=== PATIENT | male | born 1930 | race Caucasian/White ===

== ENCOUNTER 2016-12-12 17:45 | Inpatient (IN) | payer MEDICARE ==
[2016-12-12] MEDS ORDERED: NS 0.9% 1000 ML* 1,000 ML IV ONE (19:33)
--- NOTE | 2016-12-12 20:10 | RAD ---
Indication: Ataxia. Question TIA/CVA. Comparison: No relevant prior exams available on the [facility] [facility] [place]. Technique: Noncontrast CT vertex of skull through foramen magnum. Report: Moderate prominence of the cerebral sulci and cerebellar fissures reflecting atrophy. Negative for hydrocephalus. Patent basal cisterns. Negative for renteria matter white matter obscuration, intra or extra-axial hemorrhage, or mass effect. Unremarkable orbital contents. No suspicious calvarial or skull base lesion evident. Clear paranasal sinuses and mastoid air spaces. Unremarkable scalp. IMPRESSION: 1. No acute intracranial process evident. 2. Moderate involutional change.
[2016-12-12 20:36] LABS: Hematocrit 44 % (42-52); Hemoglobin 14.5 g/dl (14.0-18.0); Mean Corpuscular HGB Conc 33 g/dl (31-36); Mean Corpuscular Hemoglobin 28 pg (27-31); Mean Corpuscular Volume 83 fL (80-94); Mean Platelet Volume 9 um3 (7.4-10.4); Red Blood Count 5.22 10^6/ul (4.0-5.4); Red Cell Distribution Width 13 % (10.5-15); White Blood Count 10.7 10^3/ul (3.5-10.8)
--- NOTE | 2016-12-12 20:36 | RAD ---
Indication: Weakness. Confusion. Unstable walking. Comparison: October 10, 2013 Technique: Sitting AP 1958 hours Report: Elevated lung volumes and both diffuse mild prominence of the interstitial markings and patchy rarefaction of the mid to upper lung zone interstitial markings. No focal pulmonary lesion, compelling alveolar consolidation, pleural effusion, pneumothorax. Negative for cardiomegaly accounting for AP technique and leftward rotation. Unremarkable central pulmonary vasculature and mediastinal contours. IMPRESSION: Stigmata of obstructive lung disease. No acute pulmonary or cardiac process evident.
[2016-12-12 20:39] LABS: Urine Bacteria Absent (Absent); Urine Bilirubin Negative (Negative); Urine Glucose Negative (Negative); Urine Nitrite Positive (Negative)
[2016-12-12 20:56] LABS: Troponin I 0.01 ng/mL (<0.04)
[2016-12-12 20:57] LABS: Albumin 3.8 g/dL (3.2-5.2); Calcium 9.1 mg/dL (8.6-10.3); EGFR African American 74.5 (>60); Globulin 3.2 g/dL (2-4); Magnesium 1.8 mg/dL (1.9-2.7); Potassium 3.3 mmol/L (3.5-5.0); Total Bilirubin 1.1 mg/dL (0.2-1.0)
[2016-12-12] MEDS ORDERED: Potassium Chlor TAB* 20 MEQ TAB.ER PO ONE (21:18)
[2016-12-12 21:25] LABS: TSH (Thyroid Stimulating Horm) 2.3 mcIU/mL (0.34-5.60)
[2016-12-12] MEDS ORDERED: Levofloxacin TAB* 500 MG PO ONE (22:36)
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
[2016-12-12] MEDS ORDERED: Levofloxacin TAB* 500 MG ONE (23:00)
[2016-12-13] MEDS ORDERED: Ondansetron INJ* 2 MG/ML VIAL IV PRN (00:34)
[2016-12-13] MEDS ORDERED: Ciprofloxacin 400MG IVPREMIX(* 400 MG/200 ML BAG IVPB ONE (00:36)
[2016-12-13] MEDS: NS 0.9% 1000 ML* 1,000 ML IV SCH ×3 (02:02→16:51)
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
[2016-12-13] MEDS ORDERED: Aspirin Low Dose CHEW TAB* 81 MG PO ONE (04:21)
--- NOTE | 2016-12-13 04:28 | PN ---
Progress Note - Progress Note Date of Service: 12/13/16 Note: Troponin sent for TWI increased to 0.22 ASA 324 chew tabs now transfer to telemetry Will dose lovenox full dose x 1 when accurate weight recorded (current weight is family reported to ED staff) Next troponin at 6AM
[2016-12-13] MEDS ORDERED: Enoxaparin(*) 100 MG/ML SYR SUBCUT ONE (05:13)
[2016-12-13] MEDS ORDERED: Heparin VIAL(*) 5000 UNITS/ML VIAL (FIVE THOUSAND) SUBCUT SCH (06:00)
[2016-12-13] MEDS ORDERED: Latanoprost 0.005%* 2.5 ml BTL BOTH EYES SCH (09:00)
[2016-12-13] MEDS ORDERED: Atenolol TAB* 50 MG PO SCH (09:00)
[2016-12-13] MEDS ORDERED: NS 0.9% 1000 ML* 1,000 ML IV ONE (11:46)
[2016-12-13] MEDS ORDERED: Magnesium Sulfate 2 GM IV* 2 GM/50 ML BAG IVPB ONE (11:49)
[2016-12-13] MEDS: TIMOLOL BOTH EYES SCH ×2 (12:00→20:54)
[2016-12-13] MEDS: BRIMONIDINE BOTH EYES SCH ×2 (12:00→20:54)
[2016-12-13] MEDS: PTO Brinzolamide 1% OPHTH SOL(NF) BTL BOTH EYES SCH ×2 (12:00→20:54)
[2016-12-13] MEDS: OPTH BOTH EYES SCH ×2 (12:00→20:54)
[2016-12-13] MEDS ORDERED: Ciprofloxacin 400MG IVPREMIX(* 400 MG/200 ML BAG IVPB SCH (12:00)
[2016-12-13] MEDS ORDERED: Zosyn per Pharmacy* NOTE FOLLOW UP SCH (12:00)
[2016-12-13 12:43] LABS: Hematocrit 43 % (42-52); Hemoglobin 14.3 g/dl (14.0-18.0); Mean Corpuscular HGB Conc 34 g/dl (31-36); Mean Corpuscular Hemoglobin 28 pg (27-31); Mean Corpuscular Volume 83 fL (80-94); Mean Platelet Volume 9 um3 (7.4-10.4); Red Blood Count 5.15 10^6/ul (4.0-5.4); Red Cell Distribution Width 13 % (10.5-15); White Blood Count 8.2 10^3/ul (3.5-10.8)
[2016-12-13 13:00] LABS: Albumin 3.5 g/dL (3.2-5.2); BUN/Creatinine Ratio 20.2 (8-20); Calcium 8.8 mg/dL (8.6-10.3); EGFR African American 82.5 (>60); EGFR Non-African American 64.1 (>60); Globulin 3.4 g/dL (2-4); Magnesium 1.6 mg/dL (1.9-2.7); Potassium 3.2 mmol/L (3.5-5.0); Total Bilirubin 0.9 mg/dL (0.2-1.0); Total Protein 6.9 g/dL (6.4-8.9)
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
[2016-12-13] MEDS: Famotidine TAB* 20 MG PO SCH (15:57)
[2016-12-13] MEDS: Potassium Chloride LIQUID* 20 MEQ PACKET PO SCH ×2 (16:53→20:44)
[2016-12-13] MEDS: ZOSYN 3.375 GM Q8H per EXTENDED INFUSION IVPB SCH ×2 (18:05)
--- NOTE | 2016-12-13 19:32 | RAD ---
Indication: Fall with laceration to head. Assess for intracranial bleed. Comparison: December 12, 2016 CT. Technique: Noncontrast CT vertex of skull through foramen magnum. Report: Moderate prominence of the cerebral sulci and mild prominence of the cerebellar fissures reflecting atrophy. Negative for renteria matter white matter obscuration, intra or extra-axial hemorrhage, or mass effect unremarkable orbital contents. Negative for calvarial or skull base fracture. Clear visualized paranasal sinuses and mastoid air spaces. Scalp edema/infiltrative hematoma and subcutaneous emphysema at the inferior lateral margin of the LEFT orbit and superficial to the anterior segment of the LEFT zygomatic arch. IMPRESSION: 1. No traumatic brain injury or acute intracranial process evident. 2. Mild to moderate involutional change. 3. Scalp edema/infiltrative hematoma and subcutaneous emphysema at the inferior lateral margin of the LEFT orbit and superficial to the anterior segment of the LEFT zygomatic arch.
--- NOTE | 2016-12-13 19:43 | PN ---
Hospitalist Progress Note Patient seen and examined. Eventful day. Positive Troponin determined to be falsely transcribed (0.02 instead of 0.2). Appreciate cardiology input. ECHO pending. Pt started rigoring and spiked fever. IVF bolus. Seemed confused. Lactic 4.1. IVF bolus (intermittently hypotensive). Cipro stopped. Zosyn started. Blood cultures drawn. Around 622 pt fell when getting from chair to bed. landed on right side of body but with small lac on left cheek. CT head pending. Lyte repletion. Change to inpatient status. Sepsis likely 2/2 UTI vs bacteremia. Nicholas Cai MD
[2016-12-13] MEDS: Latanoprost 0.005%* 2.5 ml BTL BOTH EYES SCH (20:45)
--- NOTE | 2016-12-13 22:17 | RAD ---
Indication: Hypoxia, fever. Dehydration. Comparison: December 12, 2016 Technique: Upright AP 1645 hours Report: Mild prominence of the interstitial markings. Mild subsegmental atelectasis at the lung bases. Negative for pleural effusion or pneumothorax. Upper normal heart size. Unremarkable central pulmonary vasculature and mediastinal contours. IMPRESSION: Mild subsegmental atelectasis. No compelling evidence for pneumonia or pulmonary edema.
[2016-12-14] MEDS: ZOSYN 3.375 GM Q8H per EXTENDED INFUSION IVPB SCH ×4 (00:12→08:11)
[2016-12-14] MEDS ORDERED: Furosemide IV* 10 MG/ML 2 ML VIAL (20 MG) IV STA (03:47)
[2016-12-14 05:56] LABS: BUN/Creatinine Ratio 16.9 (8-20); Blood Urea Nitrogen 33 mg/dL (6-24); Chloride 100 mmol/L (101-111); EGFR African American 42.2 (>60); EGFR Non-African American 32.8 (>60); Glucose 193 mg/dL (70-100); Sodium 126 mmol/L (133-145)
[2016-12-14 06:00] LABS: CO2 Carbon Dioxide 14 mmol/L (22-32)
[2016-12-14 06:01] LABS: Anion Gap 12 mmol/L (2-11)
[2016-12-14] MEDS: Famotidine TAB* 20 MG PO SCH (08:11)
[2016-12-14] MEDS: OPTH BOTH EYES SCH ×2 (08:44→19:47)
[2016-12-14] MEDS: BRIMONIDINE BOTH EYES SCH ×2 (08:44→19:47)
[2016-12-14] MEDS: TIMOLOL BOTH EYES SCH ×2 (08:44→19:47)
[2016-12-14 08:47] LABS: Hematocrit 30 % (42-52); Hemoglobin 10.1 g/dl (14.0-18.0); Mean Corpuscular HGB Conc 34 g/dl (31-36); Mean Corpuscular Hemoglobin 28 pg (27-31); Mean Corpuscular Volume 84 fL (80-94); Mean Platelet Volume 9 um3 (7.4-10.4); Red Blood Count 3.59 10^6/ul (4.0-5.4); Red Cell Distribution Width 14 % (10.5-15); White Blood Count 12.4 10^3/ul (3.5-10.8)
[2016-12-14 08:48] LABS: Comments Flag Yes
[2016-12-14 08:49] LABS: Add Diff/Slide Review? Slide Review Added
[2016-12-14] MEDS: PTO Brinzolamide 1% OPHTH SOL(NF) BTL BOTH EYES SCH ×2 (08:49→19:53)
[2016-12-14 09:00] LABS: BUN/Creatinine Ratio 17.9 (8-20); BUN/Creatinine Ratio 18.1 (8-20); Calcium 6.7 mg/dL (8.6-10.3); Calcium 6.9 mg/dL (8.6-10.3); EGFR African American 49.1 (>60); EGFR African American 50.1 (>60); EGFR Non-African American 38.1 (>60); EGFR Non-African American 38.9 (>60); Potassium 3.1 mmol/L (3.5-5.0); Potassium 3.2 mmol/L (3.5-5.0)
[2016-12-14] MEDS: Potassium Chloride LIQUID* 20 MEQ PACKET PO SCH ×2 (09:59→19:42)
[2016-12-14] MEDS ORDERED: Potassium Chloride LIQUID* 20 MEQ PACKET PO SCH (10:00)
[2016-12-14] MEDS ORDERED: Potassium Chlor TAB* 20 MEQ TAB.ER PO SCH (10:00)
[2016-12-14] MEDS ORDERED: Calcium Gluconate INJ* 1 GM in NS 0.9% 50 ML* 50 ML IVPB ONE (11:16)
[2016-12-14] MEDS ORDERED: Potassium Chloride LIQUID* 20 MEQ PACKET PO ONE (12:00)
[2016-12-14] MEDS: cefTRIAXone VIAL(*) 1,000 MG in NS 0.9% 50 ML* 50 ML IVPB SCH (14:20)
--- NOTE | 2016-12-14 18:32 | PN ---
Subjective Date of Service: 12/14/16 Interval History: Improved Lactic acid to 2.6 from 4.1. Pt reports he feels remarkable better after the zosyn antibiotic was infusing. UCx yielded proteus mirablis. 20lasix iv given for increased respiratory rate to 30s overnight with rales appreciated at bases. IVF stopped. 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 RN Report of RLQ pain but not during two visits by this provider. Antibiotics narrowed. Bcx negative x 1 day. No more rigors. Objective Active Medications: Brimonidine/Timolol (Combigan Ophth (Nf)) 1 drop BOTH EYES BID [facility] PRN Reason: Protocol Last Admin: 12/14/16 08:44 Dose: 1 drop Brinzolamide (Azopt 1% Ophth Lisandra(Nf)) 1 drop BOTH EYES BID [facility] Last Admin: 12/14/16 08:49 Dose: 1 drop Famotidine (Pepcid Tab*) 20 mg PO DAILY [facility] Last Admin: 12/14/16 08:11 Dose: 20 mg Ceftriaxone Sodium 1,000 mg/ (Sodium Chloride) 50 mls @ 200 mls/hr IVPB Q24H [facility] Last Admin: 12/14/16 14:20 Dose: 200 mls/hr Latanoprost (Xalatan 0.005%*) 1 drop BOTH EYES BEDTIME [facility] Last Admin: 12/13/16 20:45 Dose: 1 drop Ondansetron HCl (Zofran Inj*) 4 mg IV Q4H PRN PRN Reason: NAUSEA/VOMITING Potassium Chloride (Klor-Con Liquid*) 40 meq PO 0900,2099 [facility] Last Admin: 12/14/16 09:59 Dose: 40 meq Vital Signs 12/13/16 12/13/16 12/13/16 18:35 19:01 19:26 Temperature 97.2 F 98.9 F Pulse Rate 80 83 83 Respiratory 24 17 Rate Blood Pressure 101/53 105/62 114/58 (mmHg) O2 Sat by Pulse 94 97 96 Oximetry 12/13/16 12/13/16 12/13/16 19:46 20:08 20:15 Temperature 98.0 F Pulse Rate 83 82 Respiratory 19 Rate Blood Pressure 114/61 122/68 (mmHg) O2 Sat by Pulse 97 97 Oximetry 12/13/16 12/13/16 12/13/16 20:48 21:34 22:30 Temperature 98.2 F 97.3 F Pulse Rate 83 82 83 Respiratory 19 Rate Blood Pressure 108/70 119/60 123/61 (mmHg) O2 Sat by Pulse 98 93 95 Oximetry 12/13/16 12/14/16 12/14/16 23:32 03:32 04:35 Temperature 98.4 F 98.4 F Pulse Rate 79 81 Respiratory 28 40 23 Rate Blood Pressure 116/61 127/72 (mmHg) O2 Sat by Pulse 96 98 Oximetry 12/14/16 12/14/16 12/14/16 07:28 07:56 11:05 Temperature 99.3 F 98.5 F Pulse Rate 82 80 Respiratory 28 28 28 Rate Blood Pressure 123/75 116/63 (mmHg) O2 Sat by Pulse 98 100 Oximetry 12/14/16 15:34 Temperature 96.2 F Pulse Rate 78 Respiratory 18 Rate Blood Pressure 129/59 (mmHg) O2 Sat by Pulse 96 Oximetry Oxygen Devices in Use Now: - - occasional NC or facemask use. Ears/Nose/Mouth/Throat: NL Teeth, Lips, Gums, Mucous Membranes Moist Neck: NL Appearance and Movements; NL JVP, Trachea Midline Respiratory: - - rales at L>R base Cardiovascular: NL Sounds; No Murmurs; No JVD, RRR Abdominal: NL Sounds; No Tenderness; No Distention Extremities: No Edema Skin: No Rash or Ulcers Neurological: Alert and Oriented x 3 Nutrition: Taking PO's Result Diagrams: 12/14/16 08:37 12/14/16 08:37 Additional Lab and Data: Laboratory Results - last 24 hr 12/14/16 12/14/16 12/14/16 05:13 08:37 08:37 WBC 12.4 H RBC 3.59 L Hgb 10.1 L Hct 30 L MCV 84 MCH 28 MCHC 34 RDW 14 Plt Count 127 L MPV 9 Neut % (Auto) 81.5 Lymph % (Auto) 5.6 L [place] % (Auto) 12.6 H Eos % (Auto) 0 Baso % (Auto) 0.3 Absolute Neuts (auto) 10.1 H Absolute Lymphs (auto) 0.7 L Absolute Monos (auto) 1.6 H Absolute Eos (auto) 0 Absolute Basos (auto) 0 Absolute Nucleated RBC 0 Nucleated RBC % 0 Sodium 126 L D Potassium TNP Chloride 100 L Carbon Dioxide 14 L* Anion Gap 12 H BUN 33 H Creatinine 1.95 H Est GFR ( Amer) 42.2 Est GFR (Non-Af Amer) 32.8 BUN/Creatinine Ratio 16.9 Glucose 193 H Lactic Acid 2.6 H* Calcium 8.0 L Ionized Calcium Magnesium TNP 12/14/16 12/14/16 12/14/16 08:37 08:37 08:37 WBC RBC Hgb Hct MCV MCH MCHC RDW Plt Count MPV Neut % (Auto) Lymph % (Auto) [place] % (Auto) Eos % (Auto) Baso % (Auto) Absolute Neuts (auto) Absolute Lymphs (auto) Absolute Monos (auto) Absolute Eos (auto) Absolute Basos (auto) Absolute Nucleated RBC Nucleated RBC % Sodium 135 D 134 Potassium 3.1 L 3.2 L Chloride 107 106 Carbon Dioxide 19 L 19 L Anion Gap 9 9 BUN 30 H 31 H Creatinine 1.68 H 1.71 H Est GFR ( Amer) 50.1 49.1 Est GFR (Non-Af Amer) 38.9 38.1 BUN/Creatinine Ratio 17.9 18.1 Glucose 182 H 182 H Lactic Acid Calcium 6.7 L 6.9 L Ionized Calcium Magnesium 1.5 L 12/14/16 09:36 WBC RBC Hgb Hct MCV MCH MCHC RDW Plt Count MPV Neut % (Auto) Lymph % (Auto) [place] % (Auto) Eos % (Auto) Baso % (Auto) Absolute Neuts (auto) Absolute Lymphs (auto) Absolute Monos (auto) Absolute Eos (auto) Absolute Basos (auto) Absolute Nucleated RBC Nucleated RBC % Sodium Potassium Chloride Carbon Dioxide Anion Gap BUN Creatinine Est GFR ( Amer) Est GFR (Non-Af Amer) BUN/Creatinine Ratio Glucose Lactic Acid Calcium Ionized Calcium 4.00 L Magnesium Microbiology and Other Data: Microbiology 12/13/16 12:12 Aerobic Blood Culture - Preliminary Blood Venous No Growth Day 1 Anaerobic Blood Culture - Preliminary No Growth Day 1 12/12/16 19:35 Urine Culture - Final Urine Proteus Mirabilis Diagnostic Imaging: CXR 12/13 mild subsegmental atelectasis , no compelling evidence of pneumonia Assess/Plan/Problems-Billing Assessment: 86 year old male PMH HTN presenting with progressive fatigue. Initially ACS rule out with false negative troponin. Proteus Mirabilis UTI progressive to sepsis (elevated lactic acid, unmeasurable BP, tachypnea, AMS, fever). Improving. Course c/b fall with small check lac, CT head negative. LUIS. - Patient Problems (1) Proteus mirabilis infection Current Visit: Yes Status: Acute Code(s): B96.4 - PROTEUS (MIRABILIS) ( MORGANII) CAUSING DIS CLASSD [id number] SNOMED Code(s): 75425461 Comment: UTI >100K. cipro in ED -> zosyn (when rigoring) -> narrow to ceftriaxone given sensitivities. lactic acidosis improving initial bladder scan was negative for retention. consider again if uop does not picker given LUIS. start flomax(reported history of prostate enlargement). (2) Sepsis Current Visit: Yes Status: Acute Comment: Improved. Met both SIRS and qSOFA criteria(unmeasurably low BP on two occasions, tachypnea). Continue abx for UTI source and f/u Bcx (NGTDx1) (3) Urinary retention Current Visit: Yes Status: Acute Code(s): R33.9 - RETENTION OF URINE, UNSPECIFIED SNOMED Code(s): 207475904 Comment: start flomax, consider bladderscan again if poor po intake or worsening CUSTOMS APPRAISER (4) Fall Current Visit: Yes Status: Acute Comment: fall precautions CTH negative physical therapy eval requested. (5) LUIS (acute kidney injury) Current Visit: Yes Status: Acute Code(s): N17.9 - ACUTE KIDNEY FAILURE, UNSPECIFIED SNOMED Code(s): 21894282 Comment: Improving. consider repeat bladder scan. s/p IVF. Likely ATN 2/2 sepsis vs obstructive. add flomax. Consider Ulytes (6) Hypertension Current Visit: Yes Status: Acute Code(s): I10 - ESSENTIAL (PRIMARY) HYPERTENSION SNOMED Code(s): 74902180 Comment: Home medications included atenolol/chlorithalidone 100mg/25mg BID which has been reduced to 50mg atenolol daily by Cardiology. PT in fact had started to cut his home doses as he felt fatigued and strange sensation in back. Atenolol stooped in setting of rigors/sepsis/unmeasurable BP on 12/13. (7) Fatigue Current Visit: Yes Status: Acute Code(s): R53.83 - OTHER FATIGUE SNOMED Code(s): 06646300 Comment: likely 2/2 UTI. f/u ECHO ordered by Cardiology Status and Disposition: Medicine inpatient. Potential discharge 12/15 vs 12/16 if LUIS continues to improve. Attending: Nicholas Cai
[2016-12-14] MEDS: Latanoprost 0.005%* 2.5 ml BTL BOTH EYES SCH (19:39)
[2016-12-14] MEDS: Tamsulosin CAP* 0.4 MG PO SCH (19:48)
[2016-12-15 05:31] LABS: Hematocrit 29 % (42-52); Hemoglobin 9.7 g/dl (14.0-18.0); Mean Corpuscular HGB Conc 34 g/dl (31-36); Mean Corpuscular Hemoglobin 28 pg (27-31); Mean Corpuscular Volume 82 fL (80-94); Mean Platelet Volume 10 um3 (7.4-10.4); Red Blood Count 3.48 10^6/ul (4.0-5.4); Red Cell Distribution Width 13 % (10.5-15); White Blood Count 12.2 10^3/ul (3.5-10.8)
[2016-12-15 05:44] LABS: BUN/Creatinine Ratio 20.6 (8-20); Calcium 8.3 mg/dL (8.6-10.3); EGFR African American 43.7 (>60); Magnesium 2.6 mg/dL (1.9-2.7)
[2016-12-15] MEDS: Tamsulosin CAP* 0.4 MG PO SCH (09:05)
[2016-12-15] MEDS: Potassium Chloride LIQUID* 20 MEQ PACKET PO SCH ×2 (09:05→20:06)
[2016-12-15] MEDS: TIMOLOL BOTH EYES SCH ×2 (09:05→20:03)
[2016-12-15] MEDS: BRIMONIDINE BOTH EYES SCH ×2 (09:05→20:03)
[2016-12-15] MEDS: PTO Brinzolamide 1% OPHTH SOL(NF) BTL BOTH EYES SCH ×2 (09:05→20:10)
[2016-12-15] MEDS: Famotidine TAB* 20 MG PO SCH (09:05)
[2016-12-15] MEDS: OPTH BOTH EYES SCH ×2 (09:05→20:03)
--- NOTE | 2016-12-15 13:12 | PN ---
Subjective Date of Service: 12/15/16 Interval History: . Patient reports he feels "So much better today". Reports increase in strength today and overall sense of feeling better. No fever or chills. No N/V/D. Reports his appetite is returning. Denies SOB/CP. No flank pain. Denies urinary symptoms but does reports low uop Objective Active Medications: Brimonidine/Timolol (Combigan Ophth (Nf)) 1 drop BOTH EYES BID [facility] PRN Reason: Protocol Last Admin: 12/15/16 09:05 Dose: 1 drop Brinzolamide (Azopt 1% Ophth Lisandra(Nf)) 1 drop BOTH EYES BID [facility] Last Admin: 12/15/16 09:05 Dose: 1 drop Famotidine (Pepcid Tab*) 20 mg PO DAILY [facility] Last Admin: 12/15/16 09:05 Dose: 20 mg Ceftriaxone Sodium 1,000 mg/ (Sodium Chloride) 50 mls @ 200 mls/hr IVPB Q24H [facility] Last Admin: 12/14/16 14:20 Dose: 200 mls/hr Latanoprost (Xalatan 0.005%*) 1 drop BOTH EYES BEDTIME [facility] Last Admin: 12/14/16 19:39 Dose: 1 drop Ondansetron HCl (Zofran Inj*) 4 mg IV Q4H PRN PRN Reason: NAUSEA/VOMITING Potassium Chloride (Klor-Con Liquid*) 40 meq PO 00,2099 [facility] Last Admin: 12/15/16 09:05 Dose: 40 meq Tamsulosin HCl (Flomax Cap*) 0.4 mg PO DAILY [facility] Last Admin: 12/15/16 09:05 Dose: 0.4 mg Vital Signs 12/14/16 12/14/16 12/14/16 15:34 19:45 20:00 Temperature 96.2 F 98.7 F Pulse Rate 78 79 Respiratory 18 24 24 Rate Blood Pressure 129/59 104/44 (mmHg) O2 Sat by Pulse 96 98 Oximetry 12/14/16 12/15/16 12/15/16 23:50 03:34 07:27 Temperature 99.6 F 98.6 F 97.9 F Pulse Rate 79 83 79 Respiratory 20 20 24 Rate Blood Pressure 110/46 122/70 134/80 (mmHg) O2 Sat by Pulse 98 95 99 Oximetry 12/15/16 12/15/16 07:45 11:41 Temperature 97.4 F Pulse Rate 77 Respiratory 18 20 Rate Blood Pressure 110/58 (mmHg) O2 Sat by Pulse 97 Oximetry Oxygen Devices in Use Now: None - occasional NC or facemask use. Appearance: eldelry male laying in bed A+O x3 in NAD. Eyes: No Scleral Icterus, PERRLA Ears/Nose/Mouth/Throat: NL Teeth, Lips, Gums, - - Dry MM Respiratory: Symmetrical Chest Expansion and Respiratory Effort, Clear to Auscultation Cardiovascular: NL Sounds; No Murmurs; No JVD Abdominal: NL Sounds; No Tenderness; No Distention, - - No CVA tenderness Extremities: No Edema Skin: No Rash or Ulcers, No Nodules or Sclerosis Neurological: Alert and Oriented x 3, NL Sensation, NL Muscle Strength and Tone Lines/Tubes/Other Access: Clean, Dry and Intact Peripheral IV Nutrition: Taking PO's Result Diagrams: 12/15/16 05:10 12/15/16 05:10 Additional Lab and Data: Laboratory Results - last 24 hr 12/14/16 12/14/16 12/14/16 05:13 08:37 08:37 WBC 12.4 H RBC 3.59 L Hgb 10.1 L Hct 30 L MCV 84 MCH 28 MCHC 34 RDW 14 Plt Count 127 L MPV 9 Neut % (Auto) 81.5 Lymph % (Auto) 5.6 L [place] % (Auto) 12.6 H Eos % (Auto) 0 Baso % (Auto) 0.3 Absolute Neuts (auto) 10.1 H Absolute Lymphs (auto) 0.7 L Absolute Monos (auto) 1.6 H Absolute Eos (auto) 0 Absolute Basos (auto) 0 Absolute Nucleated RBC 0 Nucleated RBC % 0 Sodium 126 L D Potassium TNP Chloride 100 L Carbon Dioxide 14 L* Anion Gap 12 H BUN 33 H Creatinine 1.95 H Est GFR ( Amer) 42.2 Est GFR (Non-Af Amer) 32.8 BUN/Creatinine Ratio 16.9 Glucose 193 H Lactic Acid 2.6 H* Calcium 8.0 L Ionized Calcium Magnesium TNP 12/14/16 12/14/16 12/14/16 08:37 08:37 08:37 WBC RBC Hgb Hct MCV MCH MCHC RDW Plt Count MPV Neut % (Auto) Lymph % (Auto) [place] % (Auto) Eos % (Auto) Baso % (Auto) Absolute Neuts (auto) Absolute Lymphs (auto) Absolute Monos (auto) Absolute Eos (auto) Absolute Basos (auto) Absolute Nucleated RBC Nucleated RBC % Sodium 135 D 134 Potassium 3.1 L 3.2 L Chloride 107 106 Carbon Dioxide 19 L 19 L Anion Gap 9 9 BUN 30 H 31 H Creatinine 1.68 H 1.71 H Est GFR ( Amer) 50.1 49.1 Est GFR (Non-Af Amer) 38.9 38.1 BUN/Creatinine Ratio 17.9 18.1 Glucose 182 H 182 H Lactic Acid Calcium 6.7 L 6.9 L Ionized Calcium Magnesium 1.5 L 12/14/16 09:36 WBC RBC Hgb Hct MCV MCH MCHC RDW Plt Count MPV Neut % (Auto) Lymph % (Auto) [place] % (Auto) Eos % (Auto) Baso % (Auto) Absolute Neuts (auto) Absolute Lymphs (auto) Absolute Monos (auto) Absolute Eos (auto) Absolute Basos (auto) Absolute Nucleated RBC Nucleated RBC % Sodium Potassium Chloride Carbon Dioxide Anion Gap BUN Creatinine Est GFR ( Amer) Est GFR (Non-Af Amer) BUN/Creatinine Ratio Glucose Lactic Acid Calcium Ionized Calcium 4.00 L Magnesium Microbiology and Other Data: Microbiology 12/13/16 12:12 Aerobic Blood Culture - Preliminary Blood Venous No Growth Day 1 Anaerobic Blood Culture - Preliminary No Growth Day 1 12/12/16 19:35 Urine Culture - Final Urine Proteus Mirabilis Diagnostic Imaging: CXR 12/13 mild subsegmental atelectasis , no compelling evidence of pneumonia Assess/Plan/Problems-Billing Assessment: 86 year old male PMH HTN presenting with progressive fatigue. Initially ACS rule out with false negative troponin. Proteus Mirabilis UTI progressive to sepsis (elevated lactic acid, unmeasurable BP, tachypnea, AMS, fever). Improving. Course c/b fall with small check lac, CT head negative. LUIS. - Patient Problems (1) Sepsis Comment: Improving. Met both SIRS and qSOFA criteria(low BP on two occasions, tachypnea). Continue abx for UTI source and f/u Bcx (NGTDx2) (2) Proteus mirabilis infection Comment: UTI >100K. cipro in ED -> zosyn (when rigoring) -> narrow to ceftriaxone given sensitivities. lactic acidosis improving (3) LUIS (acute kidney injury) Comment: Creatinine up today (had been improving); repeat bladder scan. Likely ATN 2/2 sepsis vs obstructive. Check renal u/s. Send Ulytes pt appears dry - plan for gentle IVF NS @ 75 mls/hr (4) Urinary retention Comment: initial bladder scan was negative for retention. recheck bladder scan; plan for renal ultrasound given LUIS. (5) Fall Comment: fall precautions CTH negative physical therapy following (6) Fatigue Comment: likely 2/2 UTI. f/u ECHO ordered by Cardiology. recommendation by Cards if continued fatigue or symptoms to undergo outpatient stress test (7) Hypertension Comment: Home medications included atenolol/chlorithalidone 100mg/25mg BID which has been reduced to 50mg atenolol daily by Cardiology (chlorithalidone DC' d). PT in fact had started to cut his home doses as he felt fatigued and strange sensation. Atenolol stopped in setting of rigors/sepsis/unmeasurable BP on 12/13 - plan to restart atenolol at 25 mg and continue to monitor Status and Disposition: Medicine inpatient. Discharge to home when stable. PT following.
[2016-12-15] MEDS: cefTRIAXone VIAL(*) 1,000 MG in NS 0.9% 50 ML* 50 ML IVPB SCH (14:43)
[2016-12-15] MEDS ORDERED: NS 0.9% 1000 ML* 1,000 ML IV SCH (15:00)
[2016-12-15] MEDS ORDERED: Atenolol TAB* 25 MG PO ONE (16:00)
[2016-12-15] MEDS: Latanoprost 0.005%* 2.5 ml BTL BOTH EYES SCH (21:08)
[2016-12-16 07:37] LABS: Hematocrit 25 % (42-52); Mean Corpuscular HGB Conc 35 g/dl (31-36); Mean Corpuscular Hemoglobin 29 pg (27-31); Mean Corpuscular Volume 80 fL (80-94); Mean Platelet Volume 9 um3 (7.4-10.4); Red Blood Count 3.16 10^6/ul (4.0-5.4); Red Cell Distribution Width 13 % (10.5-15); White Blood Count 9.5 10^3/ul (3.5-10.8)
[2016-12-16 07:52] LABS: BUN/Creatinine Ratio 22.1 (8-20); Calcium 8.2 mg/dL (8.6-10.3); EGFR African American 57.5 (>60); EGFR Non-African American 44.7 (>60); Magnesium 2.2 mg/dL (1.9-2.7); Potassium 3.9 mmol/L (3.5-5.0)
--- NOTE | 2016-12-16 08:53 | RAD ---
Indication: Urinary retention. Assess for hydronephrosis. Comparison: No relevant prior exams available on the [facility] PACS for comparison. Technique: Renal ultrasound. Report: 11.1 x 7.0 x 8.5 cm RIGHT kidney is remarkable for a heterogeneous echogenicity 11.1 x 6.1 x 5.4 cm mass inseparable from the peripheral cortex extending from the superior pole to the inferior pole with intrinsic vascularity suspicious for a renal cell carcinoma or potentially lymphoma. No conspicuous stones or hydronephrosis. 11.2 x 5.0 x 5.3 cm LEFT kidney demonstrates normal variant lobular surface contour without conspicuous focal lesions, stones, or hydronephrosis. Normal range renal cortical echogenicity bilaterally. IMPRESSION: 1. No evidence for obstructive uropathy. 2. Large RIGHT renal mass inseparable from the peripheral cortex suspicious for either renal cell carcinoma or possibly lymphoma. Consider renal mass protocol CT for further assessment.
[2016-12-16] MEDS: Atenolol TAB* 25 MG PO SCH (10:09)
[2016-12-16] MEDS: Famotidine TAB* 20 MG PO SCH (10:09)
[2016-12-16] MEDS: Tamsulosin CAP* 0.4 MG PO SCH (10:09)
[2016-12-16] MEDS: Potassium Chloride LIQUID* 20 MEQ PACKET PO SCH ×2 (10:10→21:24)
[2016-12-16] MEDS: BRIMONIDINE BOTH EYES SCH ×2 (10:18→21:24)
[2016-12-16] MEDS: PTO Brinzolamide 1% OPHTH SOL(NF) BTL BOTH EYES SCH ×2 (10:18→21:24)
[2016-12-16] MEDS: OPTH BOTH EYES SCH ×2 (10:18→21:24)
[2016-12-16] MEDS: TIMOLOL BOTH EYES SCH ×2 (10:18→21:24)
[2016-12-16] MEDS: cefTRIAXone VIAL(*) 1,000 MG in NS 0.9% 50 ML* 50 ML IVPB SCH (15:49)
--- NOTE | 2016-12-16 16:26 | PN ---
Subjective Date of Service: 12/16/16 Interval History: PATIENT REPORTS HE CONTINUES TO FEEL BETTER THAN ADMISSION BUT STILL FEELS LETHARGIC. DENIES FEVER/CHILLS. NO ABDOMINAL PAIN, N/V/D. REPORTS HIS APPETITE IS INCREASING. REPORTS URINATION IS "MORE NORMAL" REPORTING YELLOW URINE. NO FLANK PAIN, DYSURIA, HEMATURIA. PT WAS FOUND TO HAVE A LARGE RIGHT RENAL MASS CONCERNING FOR CARCINOMA/ LYMPHOMA. DISCUSSED FINDINGS WITH PT & HIS . THE PT DOES WANT FURTHER WORK UP AT THIS TIME, PLAN FOR CT CHEST/ABD/PELVIS. Objective Active Medications: Atenolol (Tenormin Tab*) 25 mg PO DAILY [facility] Last Admin: 12/16/16 10:09 Dose: 25 mg Brimonidine/Timolol (Combigan Ophth (Nf)) 1 drop BOTH EYES BID [facility] PRN Reason: Protocol Last Admin: 12/16/16 10:18 Dose: 1 drop Brinzolamide (Azopt 1% Ophth Lisandra(Nf)) 1 drop BOTH EYES BID [facility] Last Admin: 12/16/16 10:18 Dose: 1 drop Famotidine (Pepcid Tab*) 20 mg PO DAILY [facility] Last Admin: 12/16/16 10:09 Dose: 20 mg Ceftriaxone Sodium 1,000 mg/ (Sodium Chloride) 50 mls @ 200 mls/hr IVPB Q24H [facility] Last Admin: 12/16/16 15:49 Dose: 200 mls/hr Latanoprost (Xalatan 0.005%*) 1 drop BOTH EYES BEDTIME [facility] Last Admin: 12/15/16 21:08 Dose: 1 drop Ondansetron HCl (Zofran Inj*) 4 mg IV Q4H PRN PRN Reason: NAUSEA/VOMITING Potassium Chloride (Klor-Con Liquid*) 40 meq PO 0900,2100 [facility] Last Admin: 12/16/16 10:10 Dose: 40 meq Tamsulosin HCl (Flomax Cap*) 0.4 mg PO DAILY [facility] Last Admin: 12/16/16 10:09 Dose: 0.4 mg Vital Signs 12/15/16 12/15/16 12/15/16 19:18 20:00 23:53 Temperature 98.4 F 97.7 F Pulse Rate 83 82 Respiratory 20 17 20 Rate Blood Pressure 130/65 138/66 (mmHg) O2 Sat by Pulse 97 96 Oximetry 12/16/16 12/16/16 07:28 08:00 Temperature 98.0 F Pulse Rate 85 Respiratory 20 20 Rate Blood Pressure 155/86 (mmHg) O2 Sat by Pulse 94 Oximetry Oxygen Devices in Use Now: None - occasional NC or facemask use. Appearance: elderly male laying in bed in NAD; A+O x3 Eyes: No Scleral Icterus, PERRLA Ears/Nose/Mouth/Throat: NL Teeth, Lips, Gums, Mucous Membranes Moist Neck: NL Appearance and Movements; NL JVP Respiratory: Symmetrical Chest Expansion and Respiratory Effort, Clear to Auscultation Cardiovascular: NL Sounds; No Murmurs; No JVD, RRR, No Edema Abdominal: NL Sounds; No Tenderness; No Distention Lymphatic: No Cervical Adenopathy, No Axillary Adenopathy, No Inguinal Adenopathy Extremities: No Edema, No Clubbing, Cyanosis Skin: No Rash or Ulcers, No Nodules or Sclerosis Neurological: Alert and Oriented x 3, NL Sensation, NL Gait, NL Muscle Strength and Tone Lines/Tubes/Other Access: Clean, Dry and Intact Peripheral IV Nutrition: Taking PO's Result Diagrams: 12/16/16 07:19 12/16/16 07:19 Additional Lab and Data: Laboratory Results - last 24 hr 12/14/16 12/14/16 12/14/16 05:13 08:37 08:37 WBC 12.4 H RBC 3.59 L Hgb 10.1 L Hct 30 L MCV 84 MCH 28 MCHC 34 RDW 14 Plt Count 127 L MPV 9 Neut % (Auto) 81.5 Lymph % (Auto) 5.6 L [place] % (Auto) 12.6 H Eos % (Auto) 0 Baso % (Auto) 0.3 Absolute Neuts (auto) 10.1 H Absolute Lymphs (auto) 0.7 L Absolute Monos (auto) 1.6 H Absolute Eos (auto) 0 Absolute Basos (auto) 0 Absolute Nucleated RBC 0 Nucleated RBC % 0 Sodium 126 L D Potassium TNP Chloride 100 L Carbon Dioxide 14 L* Anion Gap 12 H BUN 33 H Creatinine 1.95 H Est GFR ( Amer) 42.2 Est GFR (Non-Af Amer) 32.8 BUN/Creatinine Ratio 16.9 Glucose 193 H Lactic Acid 2.6 H* Calcium 8.0 L Ionized Calcium Magnesium TNP 12/14/16 12/14/1617 08:37 08:37 08:37 WBC RBC Hgb Hct MCV MCH MCHC RDW Plt Count MPV Neut % (Auto) Lymph % (Auto) [place] % (Auto) Eos % (Auto) Baso % (Auto) Absolute Neuts (auto) Absolute Lymphs (auto) Absolute Monos (auto) Absolute Eos (auto) Absolute Basos (auto) Absolute Nucleated RBC Nucleated RBC % Sodium 135 D 134 Potassium 3.1 L 3.2 L Chloride 107 106 Carbon Dioxide 19 L 19 L Anion Gap 9 9 BUN 30 H 31 H Creatinine 1.68 H 1.71 H Est GFR ( Amer) 50.1 49.1 Est GFR (Non-Af Amer) 38.9 38.1 BUN/Creatinine Ratio 17.9 18.1 Glucose 182 H 182 H Lactic Acid Calcium 6.7 L 6.9 L Ionized Calcium Magnesium 1.5 L 12/14/16 09:36 WBC RBC Hgb Hct MCV MCH MCHC RDW Plt Count MPV Neut % (Auto) Lymph % (Auto) [place] % (Auto) Eos % (Auto) Baso % (Auto) Absolute Neuts (auto) Absolute Lymphs (auto) Absolute Monos (auto) Absolute Eos (auto) Absolute Basos (auto) Absolute Nucleated RBC Nucleated RBC % Sodium Potassium Chloride Carbon Dioxide Anion Gap BUN Creatinine Est GFR ( Amer) Est GFR (Non-Af Amer) BUN/Creatinine Ratio Glucose Lactic Acid Calcium Ionized Calcium 4.00 L Magnesium Microbiology and Other Data: Microbiology 12/13/16 12:12 Aerobic Blood Culture - Preliminary Blood Venous No Growth Day 1 Anaerobic Blood Culture - Preliminary No Growth Day 1 12/12/16 19:35 Urine Culture - Final Urine Proteus Mirabilis Diagnostic Imaging: CXR 12/13 mild subsegmental atelectasis , no compelling evidence of pneumonia Assess/Plan/Problems-Billing Assessment: 86 year old male PMH HTN presenting with progressive fatigue. Initially ACS rule out with false negative troponin. Proteus Mirabilis UTI progressive to sepsis (elevated lactic acid, unmeasurable BP, tachypnea, AMS, fever). Improving. Course c/b fall with small check lac, CT head negative. LUIS. - Patient Problems (1) Sepsis Comment: Resolved. Met both SIRS and qSOFA criteria(low BP on two occasions, tachypnea). Continue abx for UTI source and f/u Bcx (NGTDx3) (2) Proteus mirabilis infection Comment: UTI >100K. cipro in ED -> zosyn (when rigoring) -> narrow to ceftriaxone given sensitivities. lactic acidosis improving (3) Renal mass Comment: new this admission, found on renal ultrasound 12/15. Concern for carcinoma or lymphoma, possible abscess with presentation of sepsis? Plan for CT chest/abd/pelvis today. Will require consult from Urology tomorrow and/or possible Onc consult. Depending on what the CT shows patient may have to be referred out of town. (4) LUIS (acute kidney injury) Comment: Creatinine improving; no retention, repeat bladder scan showing 200 mls urine post void. (5) Fall Comment: fall precautions CTH negative physical therapy following (6) Fatigue Comment: Thought initially likely 2/2 UTI now concern for malignancy. f/u ECHO ordered by Cardiology (Still pending?). recommendation by Cards if continued fatigue or symptoms to undergo outpatient stress test?? Will have to determine course of renal mass. (7) Hypertension Comment: Home medications included atenolol/chlorithalidone 100mg/25mg BID which has been reduced to 50mg atenolol daily by Cardiology (chlorithalidone DC' d). PT in fact had started to cut his home doses as he felt fatigued and strange sensation. Atenolol stopped in setting of rigors/sepsis/unmeasurable BP on 12/13 - restart atenolol at 25 mg today and continue to monitor. See Dr. Yu consult on other recommendations. (8) DVT prophylaxis Comment: Heparin SQ Status and Disposition: Medicine inpatient. Pt would like to be discharge to home when stable but is very weak, may require subacute if he doesn't have the strength to go home. PT following.
[2016-12-16] MEDS ORDERED: Iodixanol* (CONTRAST) 320 MG/ML 100 ML SDV IV ONE (16:58)
--- NOTE | 2016-12-16 17:53 | RAD ---
INDICATION: RIGHT renal mass on renal ultrasound of the same date. COMPARISON: Renal ultrasound of the same date. TECHNIQUE: Multidetector CT images were obtained from the lung apices to the ischial tuberosities with 100 mL Visipaque 320 IV contrast. No oral contrast administered. CHEST REPORT: Moderate RIGHT and small LEFT dependent pleural effusions with proportional atelectasis. Negative for pneumothorax. Negative for thoracic lymphadenopathy, cardiomegaly, pericardial effusion. Normal diameter thoracic aorta. Negative for thoracic aortic dissection. Negative for thoracic fracture. At the T6 level there is a 0.8 cm cephalocaudal by 0.5 cm AP density calcified lesion projecting dorsal from the midportion of the vertebral body versus a primary epidural calcification nonetheless there is resulting moderate focal acquired central canal stenosis at the T6 level. CHEST IMPRESSION: 1. Nonspecific moderate RIGHT and small LEFT dependent pleural effusions with proportional atelectasis. 2. While likely indolent the noted calcification or ossification at the T6 level results in moderate focal acquired central canal stenosis. ABDOMEN PELVIS REPORT: Few small hepatic cyst noted including adjacent to the fundus of the gallbladder and inferior to the middle portal vein centrally without concern. No suspicious focal hepatic lesions or biliary dilatation. No CT abnormality of the gallbladder moderately severe atrophy of the pancreas. Unremarkable spleen. Negative for CT abnormality of the upper GI, small bowel, or appendix visualized extending medially. Redundant colon with severe diverticulosis without findings of diverticulitis. Small volume of mildly hyperdense fluid in the RIGHT paracolic gutter. Unremarkable adrenal lesions. Lesion noted at the periphery of the RIGHT renal cortex on ultrasound appears most consistent with a subcapsular hematoma measuring up to 8.7 cm AP by 3.8 cm transverse by 12.3 cm cephalocaudal. No definitive neoplastic lesion of the RIGHT kidney evident. Delayed RIGHT nephrogram and pyelogram. Negative for hydronephrosis. 1.2 cm simple cyst noted at the midpole of the LEFT kidney. Unremarkable nondilated ureters. Partially distended urinary bladder with multiple small diverticula. Severe prostate enlargement. Symmetric seminal vesicles. Negative for lymphadenopathy. Mild atherosclerotic plaque of normal diameter abdominal aorta and iliac arteries. Physiologic distention of the IVC. Normal opacification of the RIGHT renal vein noted. Mild RIGHT flank subcutaneous edema. Negative for lower rib or lumbar sacral spine or pelvic fracture or traumatic malalignment. No suspicious focal osseous lesions evident. ABDOMEN PELVIS IMPRESSION: 1. Lesion noted at the periphery of the RIGHT renal cortex on ultrasound appears most consistent with a subcapsular hematoma measuring up to 8.7 cm AP by 3.8 cm transverse by 12.3 cm cephalocaudal. No definitive neoplastic lesion of the RIGHT kidney evident. Associated delayed RIGHT nephrogram and pyelogram. Negative for hydronephrosis. 2. Mild RIGHT flank subcutaneous edema. The constellation of findings suggests the renal hemorrhage may have resulted from direct trauma to the RIGHT flank. Correlate with clinical assessment.
[2016-12-16] MEDS: Heparin VIAL(*) 5000 UNITS/ML VIAL (FIVE THOUSAND) SUBCUT SCH (21:24)
[2016-12-16] MEDS: Latanoprost 0.005%* 2.5 ml BTL BOTH EYES SCH (21:25)
[2016-12-17 05:54] LABS: Hematocrit 28 % (42-52); Hemoglobin 9.8 g/dl (14.0-18.0); Mean Corpuscular HGB Conc 35 g/dl (31-36); Mean Corpuscular Hemoglobin 28 pg (27-31); Mean Corpuscular Volume 81 fL (80-94); Mean Platelet Volume 9 um3 (7.4-10.4); Red Blood Count 3.45 10^6/ul (4.0-5.4); Red Cell Distribution Width 13 % (10.5-15); White Blood Count 10.5 10^3/ul (3.5-10.8)
[2016-12-17 05:55] LABS: Add Diff/Slide Review? Slide Review Added; Comments Flag Yes
[2016-12-17 06:08] LABS: BUN/Creatinine Ratio 19.6 (8-20); Calcium 8.5 mg/dL (8.6-10.3); EGFR African American 62.8 (>60); EGFR Non-African American 48.9 (>60); Magnesium 2.1 mg/dL (1.9-2.7); Potassium 4.4 mmol/L (3.5-5.0)
[2016-12-17] MEDS: Heparin VIAL(*) 5000 UNITS/ML VIAL (FIVE THOUSAND) SUBCUT SCH (06:11)
[2016-12-17] MEDS: Atenolol TAB* 25 MG PO SCH (09:38)
[2016-12-17] MEDS: Famotidine TAB* 20 MG PO SCH (09:38)
[2016-12-17] MEDS: Potassium Chloride LIQUID* 20 MEQ PACKET PO SCH ×2 (09:38→21:33)
[2016-12-17] MEDS: Tamsulosin CAP* 0.4 MG PO SCH (09:38)
[2016-12-17] MEDS: TIMOLOL BOTH EYES SCH ×2 (09:39→21:34)
[2016-12-17] MEDS: BRIMONIDINE BOTH EYES SCH ×2 (09:39→21:34)
[2016-12-17] MEDS: OPTH BOTH EYES SCH ×2 (09:39→21:34)
[2016-12-17] MEDS: PTO Brinzolamide 1% OPHTH SOL(NF) BTL BOTH EYES SCH ×2 (10:32→21:57)
[2016-12-17] MEDS: cefTRIAXone VIAL(*) 1,000 MG in NS 0.9% 50 ML* 50 ML IVPB SCH (14:46)
--- NOTE | 2016-12-17 16:24 | ECHO ---
Patient: VARUN BASS [facility] Rec#: [id number] : 1930 Date: 12/17/2016 Age: 86y Height: 182.9 cm / 72.0 in Weight: 94.8 kg / 208.9 lbs Sex: M BSA: 2.2 Room#: [facility] Admit Date#: 12/13/2016 Type: Inpatient Referring: Alexander Gan MD Reading: Naeem Del Valle MD Trophy Assembler: Yovana Perez RN RDCS CC: Cj Umaña MD Transthoracic Echocardiogram Indication: Abnormal EKG, fatigue BP: 159/80 HR: 72 Rhythm: NSR Findings History: HTN, Lyme disease, obesity Technical Comments: The study quality is fair. The study is technically limited due to patient body habitus. Completed at 1615. Left Ventricle: The left ventricular chamber size is decreased. Mild concentric left ventricular hypertrophy is observed. Septal wall hypertrophy is observed. There is increased basal septal hypertrophy noted without evidence of an increased gradient across the left ventricular outflow tract. The septal base measures 1.6 cm. Global left ventricular wall motion and contractility are within normal limits. There is normal left ventricular systolic function. The estimated ejection fraction is 60-65%. There is an E to A reversal in the mitral valve flow pattern suggestive of diastolic dysfunction. Left Atrium: The left atrial chamber size is normal. Right Ventricle: The right ventricular chamber size and systolic function are within normal limits. Right Atrium: The right atrial cavity size is normal. The interatrial septum appears lipomatous. Aortic Valve: The aortic valve is trileaflet. The aortic valve leaflets are mildly thickened. There is no evidence of aortic regurgitation. There is no evidence of aortic stenosis. Mitral Valve: Mild mitral annular calcification present. The mitral valve leaflets are mildly thickened. There is no evidence of mitral regurgitation. There is no evidence of mitral stenosis. Tricuspid Valve: The tricuspid valve leaflets are normal. There is moderate tricuspid regurgitation. There is evidence of moderate pulmonary hypertension. There is no tricuspid stenosis. Pulmonic Valve: The pulmonic valve appears normal. There is trace to mild pulmonic regurgitation. There is no pulmonic stenosis. Pericardium: There is no significant pericardial effusion. A pericardial fat pad is visualized. Aorta: There is no dilatation of the ascending aorta. The aortic arch is not well visualized. There is no dilation of the aortic root. Pulmonary Artery: The main pulmonary artery appears normal. Venous: The inferior vena cava appears normal in size. There is a greater than 50% respiratory change in the inferior vena cava dimension. Summary: There was not any prior study for comparison. Conclusions There is increased basal septal hypertrophy noted without evidence of an increased gradient across the left ventricular outflow tract. The septal base measures 1.6 cm. Global left ventricular wall motion and contractility are within normal limits. There is normal left ventricular systolic function. The estimated ejection fraction is 60-65%. The aortic valve leaflets are mildly thickened. There is no evidence of aortic stenosis. There is no evidence of mitral regurgitation. There is moderate tricuspid regurgitation. There is evidence of moderate pulmonary hypertension. There is no significant pericardial effusion. Measurements Name Value Normal Range RVDdMajor (2D) 2.8 cm (2.2 - 4.4) RAd ISD 4CH 4.4 cm (3.4 - 4.9) RA (A4C)W 3.7 cm (2.9 - 4.6) IVSd (2D) 1.1 cm (0.6 - 1) LVPWd (2D) 0.9 cm (0.6 - 1) LVIDd (2D) 3.4 cm (3.6 - 5.4) LVIDs (2D) 1.5 cm - LV FS (2D) 55 % (25 - 45) Aortic Annulus 2.2 cm (1.4 - 2.6) Ao root diameter (2D) 3 cm (2.1 - 3.5) Ascending Ao 3 cm (2.1 - 3.4) LA dimension (AP) 2D 3.7 cm (2.3 - 3.8) LAd ISD 4CH 4.7 cm (2.9 - 5.3) LA ISD 4CH W 3.3 cm (2.5 - 4.5) Name Value Normal Range LA ESV SP 4CH (A/L) 37 ml - LA ESV SP 2CH (A/L) 23 ml - LA ESV BP (A/L) 31 ml - LA ESV BP (A/L) index 14.2 ml/m2 - LA ESV SP 4CH (MOD) 34 ml - LA ESV SP 2CH (MOD) 22 ml - Name Value Normal Range MV E-wave Vmax 0.85 m/sec - MV deceleration time 231 msec - MV A-wave Vmax 1.2 m/sec - MV E:A ratio 0.7 ratio - LV septal e' Vmax 0.06 m/sec - LV lateral e' Vmax 0.07 m/sec - LV E:e' septal ratio 14.2 ratio - LV E:e' lateral ratio 12.1 ratio - Name Value Normal Range AV Vmax 1.3 m/sec - AV VTI 27 cm - AV peak gradient 7.1 mmHg - AV mean gradient 3.9 mmHg - LVOT Vmax 1.1 m/sec - LVOT VTI 18.8 cm - LVOT peak gradient 5 mmHg - LVOT mean gradient 2.6 mmHg - Name Value Normal Range TR Vmax 3.5 m/sec - TR peak gradient 49 mmHg - RAP 3 mmHg - RVSP 52 mmHg - IVC diameter 1.8 cm - Name Value Normal Range PV Vmax 0.89 m/sec -
--- NOTE | 2016-12-17 16:36 | PN ---
Subjective Date of Service: 12/17/16 Interval History: Patient seen and examined at bedside. Mr. Erickson reports walking in the halls and feeling much stronger. Denies any pain, CP, SOB, n/v. Mostly feels fatigued His is encouraged by his progress. Discussed renal hematoma with pt and spouse. Family History: Unchanged from Admission Social History: Unchanged from Admission Past Medical History: Unchanged from Admission Objective Active Medications: Atenolol (Tenormin Tab*) 25 mg PO DAILY [facility] Last Admin: 12/17/16 09:38 Dose: 25 mg Brimonidine/Timolol (Combigan Ophth (Nf)) 1 drop BOTH EYES BID LEE PRN Reason: Protocol Last Admin: 12/17/16 09:39 Dose: 1 drop Brinzolamide (Azopt 1% Ophth Lisandra(Nf)) 1 drop BOTH EYES BID [facility] Last Admin: 12/17/16 10:32 Dose: 1 drop Famotidine (Pepcid Tab*) 20 mg PO DAILY [facility] Last Admin: 12/17/16 09:38 Dose: 20 mg Ceftriaxone Sodium 1,000 mg/ (Sodium Chloride) 50 mls @ 200 mls/hr IVPB Q24H [facility] Last Admin: 12/17/16 14:46 Dose: 200 mls/hr Latanoprost (Xalatan 0.005%*) 1 drop BOTH EYES BEDTIME [facility] Last Admin: 12/16/16 21:25 Dose: 1 drop Ondansetron HCl (Zofran Inj*) 4 mg IV Q4H PRN PRN Reason: NAUSEA/VOMITING Potassium Chloride (Klor-Con Liquid*) 40 meq PO 00,2100 [facility] Last Admin: 12/17/16 09:38 Dose: 40 meq Tamsulosin HCl (Flomax Cap*) 0.4 mg PO DAILY [facility] Last Admin: 12/17/16 09:38 Dose: 0.4 mg Vital Signs 12/16/16 12/16/16 12/17/16 20:19 21:25 00:20 Temperature 97.6 F 97.6 F Pulse Rate 80 78 Respiratory 20 20 20 Rate Blood Pressure 146/71 146/74 (mmHg) O2 Sat by Pulse 100 93 Oximetry 12/17/16 03:56 Temperature 97.9 F Pulse Rate 79 Respiratory 20 Rate Blood Pressure 159/80 (mmHg) O2 Sat by Pulse 96 Oximetry Oxygen Devices in Use Now: None - occasional NC or facemask use. Appearance: Elderly male, lying in bed, NAD Eyes: No Scleral Icterus Ears/Nose/Mouth/Throat: NL Teeth, Lips, Gums, Mucous Membranes Moist Neck: NL Appearance and Movements; NL JVP Respiratory: Symmetrical Chest Expansion and Respiratory Effort, Clear to Auscultation Cardiovascular: NL Sounds; No Murmurs; No JVD, RRR Abdominal: NL Sounds; No Tenderness; No Distention Extremities: No Edema, No Clubbing, Cyanosis Skin: - - ecchymotic areas to face and BUE Neurological: Alert and Oriented x 3, NL Muscle Strength and Tone Lines/Tubes/Other Access: Clean, Dry and Intact Peripheral IV Nutrition: Taking PO's Result Diagrams: 12/17/16 05:17 12/17/16 05:17 Additional Lab and Data: Laboratory Results - last 24 hr 12/14/16 12/14/16 12/14/16 05:13 08:37 08:37 WBC 12.4 H RBC 3.59 L Hgb 10.1 L Hct 30 L MCV 84 MCH 28 MCHC 34 RDW 14 Plt Count 127 L MPV 9 Neut % (Auto) 81.5 Lymph % (Auto) 5.6 L Nuckolls % (Auto) 12.6 H Eos % (Auto) 0 Baso % (Auto) 0.3 Absolute Neuts (auto) 10.1 H Absolute Lymphs (auto) 0.7 L Absolute Monos (auto) 1.6 H Absolute Eos (auto) 0 Absolute Basos (auto) 0 Absolute Nucleated RBC 0 Nucleated RBC % 0 Sodium 126 L D Potassium TNP Chloride 100 L Carbon Dioxide 14 L* Anion Gap 12 H BUN 33 H Creatinine 1.95 H Est GFR ( Amer) 42.2 Est GFR (Non-Af Amer) 32.8 BUN/Creatinine Ratio 16.9 Glucose 193 H Lactic Acid 2.6 H* Calcium 8.0 L Ionized Calcium Magnesium TNP 12/14/16 12/14/16 12/14/16 08:37 08:37 08:37 WBC RBC Hgb Hct MCV MCH MCHC RDW Plt Count MPV Neut % (Auto) Lymph % (Auto) Nuckolls % (Auto) Eos % (Auto) Baso % (Auto) Absolute Neuts (auto) Absolute Lymphs (auto) Absolute Monos (auto) Absolute Eos (auto) Absolute Basos (auto) Absolute Nucleated RBC Nucleated RBC % Sodium 135 D 134 Potassium 3.1 L 3.2 L Chloride 107 106 Carbon Dioxide 19 L 19 L Anion Gap 9 9 BUN 30 H 31 H Creatinine 1.68 H 1.71 H Est GFR ( Amer) 50.1 49.1 Est GFR (Non-Af Amer) 38.9 38.1 BUN/Creatinine Ratio 17.9 18.1 Glucose 182 H 182 H Lactic Acid Calcium 6.7 L 6.9 L Ionized Calcium Magnesium 1.5 L 12/14/16 09:36 WBC RBC Hgb Hct MCV MCH MCHC RDW Plt Count MPV Neut % (Auto) Lymph % (Auto) Nuckolls % (Auto) Eos % (Auto) Baso % (Auto) Absolute Neuts (auto) Absolute Lymphs (auto) Absolute Monos (auto) Absolute Eos (auto) Absolute Basos (auto) Absolute Nucleated RBC Nucleated RBC % Sodium Potassium Chloride Carbon Dioxide Anion Gap BUN Creatinine Est GFR ( Amer) Est GFR (Non-Af Amer) BUN/Creatinine Ratio Glucose Lactic Acid Calcium Ionized Calcium 4.00 L Magnesium Microbiology and Other Data: Microbiology 12/13/16 12:12 Aerobic Blood Culture - Preliminary Blood Venous No Growth Day 1 Anaerobic Blood Culture - Preliminary No Growth Day 1 12/12/16 19:35 Urine Culture - Final Urine Proteus Mirabilis Diagnostic Imaging: CXR 12/13 mild subsegmental atelectasis , no compelling evidence of pneumonia Assess/Plan/Problems-Billing Assessment: 86 year old male PMH HTN presenting with progressive fatigue. Initially ACS rule out with false negative troponin. Proteus Mirabilis UTI progressive to sepsis (elevated lactic acid, unmeasurable BP, tachypnea, AMS, fever). Improving. Course c/b fall with small check lac, CT head negative. LUIS. - Patient Problems (1) Renal hematoma Code(s): S37.019A - MINOR CONTUSION OF UNSPECIFIED KIDNEY, INITIAL ENCOUNTER Comment: CTA chest/abd/pelvis identifies previous concern for mass as a right subcapsular hematoma with accompanying right flank subcutaneous edema. Likely secondary to fall/trauma to right side - reports a forceful fall from an air matty a few weeks ago. Discontinued heparin. Continue to monitor - no hydronephrosis evident, renal function improving. (2) Sepsis Comment: Resolved. Meeting for sepsis on admission by both SIRS and qSOFA criteria (low BP on two occasions, tachypnea). Continue abx for UTI source (3) Proteus mirabilis infection Code(s): B96.4 - PROTEUS (MIRABILIS) (MORGANII) CAUSING DIS CLASSD ELSWHR Comment: UTI >100K Received cipro in ED -> Zosyn (when rigoring) -> narrow to ceftriaxone given sensitivities. (4) LUIS (acute kidney injury) Code(s): N17.9 - ACUTE KIDNEY FAILURE, UNSPECIFIED Comment: Creatinine improving No retention, repeat bladder scan showing 200 mls urine post void. Continue tamsulosin (5) Fall Comment: Fall precautions CTH negative PT/OT consults for dc planning (6) Fatigue Code(s): R53.83 - OTHER FATIGUE Comment: Likely secondary to UTI Echocardiogram pending to evaluate LV function (7) Hypertension Code(s): I10 - ESSENTIAL (PRIMARY) HYPERTENSION Comment: Mostly normotensive Continue atenolol at reduced dose Home chlorithalidone discontinued (8) DVT prophylaxis Comment: Heparin SQ Status and Disposition: Medicine inpatient. Pt would like to be discharge to home when stable but is very weak, may require subacute if he doesn't have the strength to go home. PT following.
[2016-12-17] MEDS: Latanoprost 0.005%* 2.5 ml BTL BOTH EYES SCH (22:11)
[2016-12-18 05:28] LABS: Hematocrit 28 % (42-52); Hemoglobin 9.6 g/dl (14.0-18.0); Mean Corpuscular HGB Conc 34 g/dl (31-36); Mean Corpuscular Hemoglobin 28 pg (27-31); Mean Corpuscular Volume 82 fL (80-94); Mean Platelet Volume 9 um3 (7.4-10.4); Red Blood Count 3.46 10^6/ul (4.0-5.4); Red Cell Distribution Width 13 % (10.5-15); White Blood Count 13.7 10^3/ul (3.5-10.8)
[2016-12-18 05:31] LABS: Add Diff/Slide Review? Slide Review Added; Comments Flag Yes
[2016-12-18 05:36] LABS: BUN/Creatinine Ratio 18.2 (8-20); Calcium 9.2 mg/dL (8.6-10.3); EGFR African American 60.3 (>60); EGFR Non-African American 46.9 (>60); Magnesium 2.2 mg/dL (1.9-2.7); Potassium 4.3 mmol/L (3.5-5.0)
[2016-12-18] MEDS: BRIMONIDINE BOTH EYES SCH (08:21)
[2016-12-18] MEDS: OPTH BOTH EYES SCH (08:21)
[2016-12-18] MEDS: TIMOLOL BOTH EYES SCH (08:21)
[2016-12-18] MEDS: PTO Brinzolamide 1% OPHTH SOL(NF) BTL BOTH EYES SCH (08:22)
[2016-12-18] MEDS: Tamsulosin CAP* 0.4 MG PO SCH (08:24)
[2016-12-18] MEDS: Atenolol TAB* 25 MG PO SCH (08:24)
[2016-12-18] MEDS: Potassium Chloride LIQUID* 20 MEQ PACKET PO SCH (08:24)
[2016-12-18] MEDS: Famotidine TAB* 20 MG PO SCH (08:24)
--- NOTE | 2016-12-18 10:49 | PN ---
Subjective Date of Service: 12/18/16 Family History: Unchanged from Admission Social History: Unchanged from Admission Past Medical History: Unchanged from Admission Objective Active Medications: Atenolol (Tenormin Tab*) 25 mg PO DAILY [facility] Last Admin: 12/18/16 08:24 Dose: 25 mg Brimonidine/Timolol (Combigan Ophth (Nf)) 1 drop BOTH EYES BID [facility] PRN Reason: Protocol Last Admin: 12/18/16 08:21 Dose: 1 drop Brinzolamide (Azopt 1% Ophth Lisandra(Nf)) 1 drop BOTH EYES BID [facility] Last Admin: 12/18/16 08:22 Dose: 1 drop Famotidine (Pepcid Tab*) 20 mg PO DAILY [facility] Last Admin: 12/18/16 08:24 Dose: 20 mg Ceftriaxone Sodium 1,000 mg/ (Sodium Chloride) 50 mls @ 200 mls/hr IVPB Q24H [facility] Last Admin: 12/17/16 14:46 Dose: 200 mls/hr Latanoprost (Xalatan 0.005%*) 1 drop BOTH EYES BEDTIME [facility] Last Admin: 12/17/16 22:11 Dose: 1 drop Ondansetron HCl (Zofran Inj*) 4 mg IV Q4H PRN PRN Reason: NAUSEA/VOMITING Potassium Chloride (Klor-Con Liquid*) 40 meq PO 0900,2099 [facility] Last Admin: 12/18/16 08:24 Dose: 40 meq Tamsulosin HCl (Flomax Cap*) 0.4 mg PO DAILY [facility] Last Admin: 12/18/16 08:24 Dose: 0.4 mg Vital Signs 12/17/16 12/17/16 12/17/16 15:55 20:00 23:48 Temperature 97.9 F 98.4 F Pulse Rate 70 75 Respiratory 16 20 20 Rate Blood Pressure 135/67 138/65 (mmHg) O2 Sat by Pulse 94 93 Oximetry 12/18/16 12/18/16 07:36 08:05 Temperature 98.3 F Pulse Rate 75 Respiratory 18 20 Rate Blood Pressure 145/78 (mmHg) O2 Sat by Pulse 91 Oximetry Oxygen Devices in Use Now: None - occasional NC or facemask use. Result Diagrams: 12/18/16 04:52 12/18/16 04:52 Additional Lab and Data: Laboratory Results - last 24 hr 12/14/16 12/14/16 12/14/16 05:13 08:37 08:37 WBC 12.4 H RBC 3.59 L Hgb 10.1 L Hct 30 L MCV 84 MCH 28 MCHC 34 RDW 14 Plt Count 127 L MPV 9 Neut % (Auto) 81.5 Lymph % (Auto) 5.6 L Sharp % (Auto) 12.6 H Eos % (Auto) 0 Baso % (Auto) 0.3 Absolute Neuts (auto) 10.1 H Absolute Lymphs (auto) 0.7 L Absolute Monos (auto) 1.6 H Absolute Eos (auto) 0 Absolute Basos (auto) 0 Absolute Nucleated RBC 0 Nucleated RBC % 0 Sodium 126 L D Potassium TNP Chloride 100 L Carbon Dioxide 14 L* Anion Gap 12 H BUN 33 H Creatinine 1.95 H Est GFR ( Amer) 42.2 Est GFR (Non-Af Amer) 32.8 BUN/Creatinine Ratio 16.9 Glucose 193 H Lactic Acid 2.6 H* Calcium 8.0 L Ionized Calcium Magnesium TNP 12/14/16 12/14/16 12/14/16 08:37 08:37 08:37 WBC RBC Hgb Hct MCV MCH MCHC RDW Plt Count MPV Neut % (Auto) Lymph % (Auto) Sharp % (Auto) Eos % (Auto) Baso % (Auto) Absolute Neuts (auto) Absolute Lymphs (auto) Absolute Monos (auto) Absolute Eos (auto) Absolute Basos (auto) Absolute Nucleated RBC Nucleated RBC % Sodium 135 D 134 Potassium 3.1 L 3.2 L Chloride 107 106 Carbon Dioxide 19 L 19 L Anion Gap 9 9 BUN 30 H 31 H Creatinine 1.68 H 1.71 H Est GFR ( Amer) 50.1 49.1 Est GFR (Non-Af Amer) 38.9 38.1 BUN/Creatinine Ratio 17.9 18.1 Glucose 182 H 182 H Lactic Acid Calcium 6.7 L 6.9 L Ionized Calcium Magnesium 1.5 L 12/14/16 09:36 WBC RBC Hgb Hct MCV MCH MCHC RDW Plt Count MPV Neut % (Auto) Lymph % (Auto) Sharp % (Auto) Eos % (Auto) Baso % (Auto) Absolute Neuts (auto) Absolute Lymphs (auto) Absolute Monos (auto) Absolute Eos (auto) Absolute Basos (auto) Absolute Nucleated RBC Nucleated RBC % Sodium Potassium Chloride Carbon Dioxide Anion Gap BUN Creatinine Est GFR ( Amer) Est GFR (Non-Af Amer) BUN/Creatinine Ratio Glucose Lactic Acid Calcium Ionized Calcium 4.00 L Magnesium Microbiology and Other Data: Microbiology 12/13/16 12:12 Aerobic Blood Culture - Preliminary Blood Venous No Growth Day 1 Anaerobic Blood Culture - Preliminary No Growth Day 1 12/12/16 19:35 Urine Culture - Final Urine Proteus Mirabilis Diagnostic Imaging: CXR 12/13 mild subsegmental atelectasis , no compelling evidence of pneumonia Assess/Plan/Problems-Billing Assessment: 86 year old male PMH HTN presenting with progressive fatigue. Initially ACS rule out with false negative troponin. Proteus Mirabilis UTI progressive to sepsis (elevated lactic acid, unmeasurable BP, tachypnea, AMS, fever). Improving. Course c/b fall with small check lac, CT head negative. LUIS. - Patient Problems (1) Renal hematoma Code(s): S37.019A - MINOR CONTUSION OF UNSPECIFIED KIDNEY, INITIAL ENCOUNTER Comment: CTA chest/abd/pelvis identifies previous concern for mass as a right subcapsular hematoma with accompanying right flank subcutaneous edema. Likely secondary to fall/trauma to right side - reports a forceful fall from an air matty a few weeks ago. Discontinued heparin. Continue to monitor - no hydronephrosis evident, renal function improving. (2) Sepsis Comment: Resolved. Meeting for sepsis on admission by both SIRS and qSOFA criteria (low BP on two occasions, tachypnea). Continue abx for UTI source (3) Proteus mirabilis infection Code(s): B96.4 - PROTEUS (MIRABILIS) (MORGANII) CAUSING DIS CLASSD ELSWHR Comment: UTI >100K Received cipro in ED -> Zosyn (when rigoring) -> narrow to ceftriaxone given sensitivities. (4) LUIS (acute kidney injury) Code(s): N17.9 - ACUTE KIDNEY FAILURE, UNSPECIFIED Comment: Creatinine improving No retention, repeat bladder scan showing 200 mls urine post void. Continue tamsulosin (5) Fall Comment: Fall precautions CTH negative PT/OT consults for dc planning (6) Fatigue Code(s): R53.83 - OTHER FATIGUE Comment: Likely secondary to UTI Echocardiogram pending to evaluate LV function (7) Hypertension Code(s): I10 - ESSENTIAL (PRIMARY) HYPERTENSION Comment: Mostly normotensive Continue atenolol at reduced dose Home chlorithalidone discontinued (8) DVT prophylaxis Comment: Heparin SQ Status and Disposition: Medicine inpatient. Pt would like to be discharge to home when stable but is very weak, may require subacute if he doesn't have the strength to go home. PT following.
[2016-12-18] MEDS: cefTRIAXone VIAL(*) 1,000 MG in NS 0.9% 50 ML* 50 ML IVPB SCH (13:58)
[2016-12-18 16:44] VITALS: BP 152/56
--- NOTE | 2016-12-19 06:24 | DS ---
CC: Dr. Martinez * MEDICINE DISCHARGE SUMMARY: DATE OF ADMISSION: 12/13/16 DATE OF DISCHARGE: 12/18/16 PRIMARY CARE PHYSICIAN: Dr. Martinez. PROVIDER: Blu Morejon NP ATTENDING PHYSICIAN: Dr. Rossi Young * (as dictated by Blu Morejon NP) CONSULTING PHYSICIAN: Dr. Alexander Gan. PRIMARY DISCHARGE DIAGNOSES: 1. Renal hematoma. 2. Urinary tract infection. 3. Unsteady gait with fall. 4. T-wave inversions and abnormal troponins. 5. Acute kidney injury in the setting of dehydration. SECONDARY DISCHARGE DIAGNOSES: 1. Hypertension. 2. History of gastrointestinal bleeding. 3. History of Lyme disease. 4. Glaucoma. MEDICATIONS AT DISCHARGE: 1. Combigan eye drops, 1 drop to both eyes b.i.d. 2. Azopt 1 drop to both eyes b.i.d. 3. Latanoprost 1 drop to both eyes daily. 4. Cefuroxime 250 mg b.i.d. x5 additional days. 5. Tamsulosin 0.4 mg daily. 6. Atenolol 25 mg daily. HOSPITAL COURSE OF STAY: For full details, please refer to the H and P provided by Dr. Duggan on admission. In summary, Mr. Erickson is a very active 86- year-old man, who presented to the hospital with concern for increasing fatigue. The patient recently had an injury where he was driving a matty, hit the wall, and fell off the tractor with no loss of consciousness or head strike. This was when he was out of town in [place], when he returned back , the patient had significant fatigue, and in the emergency room, was found to be hypokalemic. The patient was becoming increasingly weaker, had difficulty standing. Diagnostic testing showed concern for UTI. The patient was started on antibiotics and followed for concern for T- wave inversions and unsteady gait. The patient had a peak troponin of 0.21 and Cardiology was consulted. Given Mr. Erickson's fatigue and fall as well as his urinary tract infection and subsequent electrolyte abnormalities, it was suspected that this was likely the cause of the patient's elevated troponins. The patient was repleted for his electrolytes and an echocardiogram was ordered to evaluate for LV dysfunction. His chlorthalidone was discontinued as this may be causing significant hypotension in the outpatient setting. His atenolol was also decreased to 25 mg here in the hospital, which has been sufficient to keep the patient's blood pressure well controlled at this time. The transthoracic echocardiogram showed increased basal septal hypertrophy without evidence of increased gradient across the left ventricular outflow tract. There was normal LV systolic function, the estimated EF was 60% to 65%. The aortic valve leaflets are mildly thickened. There is no evidence of aortic stenosis. There is no evidence of mitral regurgitation. There was moderate tricuspid regurgitation and there was evidence of moderate pulmonary hypertension. There was no significant pericardial effusion. The patient was being treated for UTI, which had a positive urine culture for Proteus mirabilis infection. The patient still had persistent kidney injury. A renal ultrasound was checked, which initially showed concern for a potential mass to the right kidney. This was further investigated on a CT of the chest, abdomen, and pelvis; however, it was determined that the lesion noted at the periphery of the right renal cortex on the ultrasound appears most consistent with a subcapsular hematoma that measures up to 8.7 cm x 3.8 cm transverse by 12.3 cm cephalocaudal. There was no definitive neoplastic lesion of the right kidney evident. Associated delayed right nephrogram and pyelogram. Negative for hydronephrosis. There was some mild right flank subcutaneous edema. The constellation of findings suggested the renal hemorrhage may have resulted from direct trauma to the right flank. Given these findings, it was felt that the patient's fall from the air matty may have contributed to the renal hematoma that was seen on the CT scan. The patient has been treated with antibiotics and has been discharged on antibiotics to complete a full course. He has been working with physical and occupational therapies in regards to his ADLs and ambulation. The patient has been advised not to drive. He has showed significant improvement with his ambulation and ability to perform ADLs, and it was felt he would not need subacute rehab. He has been referred to home nursing services for further nursing evaluation as well as home PT and OT. He has also been ordered a rolling walker and shower chair for home use. The patient has been advised not to drive until cleared by his primary care provider. Prior to discharge, the patient has been in stable condition. Most recent vital signs showed temperature of 98.3, heart rate 75, respiratory rate 18, blood pressure 145/70, and O2 saturation 93% on room air. HEENT: Pupils are equal, round, and reactive. There is an area of old ecchymosis to the left cheek with a healing abrasion. Oral mucosa appears moist. Neck is supple. No lymphadenopathy or JVD noted. Cardiac: S1, S2 heart sounds. Regular rate and rhythm. Lungs are clear to auscultation. Abdomen is soft, nontender, nondistended. The patient has multiple old ecchymotic areas to the lower extremities and upper extremities. He is alert and oriented x3. Affect is appropriate. OUTPATIENT FOLLOWUP NEEDS: The patient should follow up with his PCP. He has been advised not to drive. He has also been advised to monitor for any further bruising or worsening right flank pain or inability to urinate. The patient may benefit from the outpatient stress test when fully recovered. He has also been taken off his diuretics, but may benefit from addition of hydrochlorothiazide or loop diuretic per recommendations of Cardiology. Cardiology also recommended perhaps starting him on lisinopril or amlodipine should the patient's blood pressure elevate and require further medication optimization. Patient advised to weight self daily and keep records for PCP follow-up. Labs to follow up on: The patient has been ordered to have outpatient BMP and CBC to monitor for any further signs of bleeding as well as to follow the patient's mild leukocytosis of 13,000 seen on 12/18/16; however, the patient is clinically improved. DIET: Heart-healthy diet. ACTIVITY: As tolerated. CONDITION: Improved, stable. DISPOSITION: To home. TIME SPENT: Time spent on this discharge was approximately 45 minutes. Again, this is only a brief summary of the patient's extended and complex hospital course of stay. For full details, please refer to the full medical record. If you have any further questions or need further assistance, please feel free to contact me at [phone]. BLU MOREJON NP [id number]/[facility] #: [id number] MIMI
== END 2016-12-18 17:10 | disposition home or self-care (01) | DRG 871 ==
LOC: ED 17:45 → MED 12-13 00:34 → MEDTELE 12-13 05:07 → OBSVTOIN 12-13 12:00
PROVIDERS: ADMIT Internal Medicine; ATTEND Internal Medicine
DX: A41.9 Sepsis, unspecified organism (principal); N17.0 Acute kidney failure with tubular necrosis; I27.2 Other secondary pulmonary hypertension; S37.019A Minor contusion of unspecified kidney, initial encounter; E87.1 Hypo-osmolality and hyponatremia; E83.42 Hypomagnesemia; N39.0 Urinary tract infection, site not specified; E86.0 Dehydration; R26.9 Unspecified abnormalities of gait and mobility; H40.9 Unspecified glaucoma; Z86.19 Personal history of other infectious and parasitic diseases; B96.4 Proteus (mirabilis) (morganii) as the cause of diseases classified elsewhere; E87.6 Hypokalemia; I07.1 Rheumatic tricuspid insufficiency; W19.XXXA Unspecified fall, initial encounter
CPT/HCPCS: 36415; 70450; 71010; 71260; 74177; 76775; 80048; 80053; 81003; 81015; 82330; 82550; 82570; 83605; 83735; 83880; 83935; 84300; 84443; 84484; 85025; 85610; 87040; 87077; 87086; 87186; 93005; A9270-GY; J0610; J0696; J0744; J1644; J1650; J1940; J2543; J3475; Q9967

== ENCOUNTER → 2018-08-11 17:31 | Emergency (ER) | payer MEDICARE ==
--- OUTSIDE RECORDS SUMMARY | 2018-08-11 17:38 | XMS REPORT | Continuity of Care Document ---
:1930 External Reference #:[id number] Author Name Antonia Barcenas O.D. Address [address] [place] [address] Care Team Providers Name Role Phone Cassi Martinez M.D. Primary Care Physician Unavailable Payers Date Identification Numbers Payment Provider Subscriber Policy Number: [id number] Medicare - [facility] Julio Erickson PayID: [id number] [address] [place] [address] Policy Number: [id number] [facility] Julio Erickson PayID: [id number] [address] [place] [address] Advance Directives Description No Information Available Problems Active Problems Provider Date Bilateral hearing loss Onset: Essential hypertension Onset: Lyme disease Onset: Conjunctivitis Antonia Barcenas O.D. Onset: 05/05/2018 Bilateral primary open angle glaucoma Antonia Barcenas O.D. Onset: 2016 Combined form of senile cataract Antonia Barcenas O.D. Onset: 05/30/2015 Nuclear senile cataract Antonia Barcenas O.D. Onset: 12/31/2014 Severe / Advanced / End Stage Glaucoma Antonia Barcenas O.D. Onset: 2014 Primary open angle glaucoma Antonia Barcenas O.D. Onset: 12/31/2014 Family History Date Family Member(s) Observation Comments Father No Current Problems Mother No Current Problems Social History Type Date Description Comments Sex Unknown Marital Status Legal Status: Occupation [employer] Work Status Full-Time Employment ETOH Use Denies alcohol use Tobacco Use Start: Unknown Patient has never smoked Recreational Drug Use Denies Drug Use Smoking Status Reviewed: 07/21/18 Patient has never smoked Allergies, Adverse Reactions, Alerts Active Allergies Reaction Severity Comments Date Benadryl 10/14/2014 Medications Active Medications SIG Qnty Indications Ordering Provider Date Combigan 1 drop both eyes 30ml Antonia Wilburn 12/14/2014 0.2-0.5% twice a day Stockwin, O.D. Solution Azopt instill 1 drop 45ml Antonia Wilburn 12/14/2014 1% Suspension into both eyes Stockwin, O.D. twice a day Latanoprost instill 1 drop 7.5units Deidra Leigh López, 09/10/2014 0.005% into both eyes O.D. Solution once daily Atenolol take 1 tablet by Unknown 25mg Tablets mouth once daily Tamsulosin HCL take 1 capsule Unknown 0.4mg by mouth once Capsules daily History Medications Ofloxacin place 1 drop 10ml H10.89 Antonia Wilburn 05/05/2018 - (Ophthalmic) into both eyes Stockwin, O.D. 05/23/2018 0.3% 4xday while Solution awake Erythromycin apply thin strip 1Tube H10.89 Antonia Wilburn 05/05/2018 - 5mg/GM to all four Stockwin, O.D. 05/28/2018 Ointment eyelid margins x every night for 2 weeks Atenolol-Chlorthalido Unknown - ne 03/05/2017 100-25mg Tablets Finasteride take 1 tablet by Unknown - 5mg Tablets mouth once daily 07/04/2017 Immunizations Description No Information Available Vital Signs Description No Information Available Results Description No Information Available Procedures Date Code Description Status 05/05/2018 58001 Est Patient Intermediate Exam Completed 03/07/2018 72308 Scanning Computerized Ophthalmic Diagnostic Imag Posterior Completed Seg On 03/07/2018 61932 Visual Field Exam Extended Completed 03/07/2018 61709 Est Patient Comprehensive Exam Completed 11/04/2017 02352 Est Patient Intermediate Exam Completed 03/06/2017 43892 Scanning Computerized Ophthalmic Diagnostic Imag Posterior Completed Seg On 03/06/2017 95583 Visual Field Exam Extended Completed 03/06/2017 15126 Est Patient Comprehensive Exam Completed 06/13/2016 64367 Scanning Computerized Ophthalmic Diagnostic Imag Posterior Completed Seg On 06/13/2016 83997 Determination Of Refractive State Completed 06/13/2016 78718 Est Patient Comprehensive Exam Completed 02/13/2016 63232 Visual Field Exam Extended Completed 02/13/2016 19678 Est Patient Intermediate Exam Completed 05/30/2015 06021 Pachymetry Completed 05/30/2015 81076 Est Patient Intermediate Exam Completed 12/31/2014 18642 Scanning Computerized Ophthalmic Diagnostic Imag Posterior Completed Seg On 12/31/2014 29549 Est Patient Comprehensive Exam Completed 05/13/2014 05679 Visual Field Exam Extended Completed 05/13/2014 49830 Est Patient Intermediate Exam Completed 02/08/2014 51905 Scanning Computerized Ophthalmic Diagnostic Imag Posterior Completed Seg On 02/08/2014 69145 Gonioscopy Completed 02/08/2014 12129 Est Patient Intermediate Exam Completed 11/09/2013 21539 Fundus Photography With Interpretation And Report Completed 11/09/2013 70384 Visual Field Exam Extended Completed 11/09/2013 31779 Est Patient Comprehensive Exam Completed 03/23/2013 78115 Trabeculoplasty By Laser Surgery Completed 03/19/2013 18130 Est Patient Intermediate Exam Completed 03/19/2013 43182 Trabeculoplasty By Laser Surgery Completed 02/25/2013 61352 Est Patient Comprehensive Exam Completed 02/25/2013 28113 Visual Field Exam Extended Completed 02/25/2013 38227 Scanning Computerized Ophthalmic Diagnostic Imag Posterior Completed Seg On 12/03/2011 37355 Scanning Computerized Ophthalmic Diagnostic Imag Posterior Completed Seg On 12/03/2011 89261 Visual Field Exam Extended Completed 12/03/2011 29211 Est Patient Comprehensive Exam Completed 05/07/2011 52677 Trabeculoplasty By Laser Surgery Completed 04/23/2011 17422 Trabeculoplasty By Laser Surgery Completed 04/16/2011 83989 Scanning Computerized Ophthalmic Diagnostic Imag Posterior Completed Seg On 04/16/2011 53513 Est Patient Comprehensive Exam Completed 10/04/2010 82530 Visual Field Exam Extended Completed 06/07/2010 81767 Determination Of Refractive State Completed 06/07/2010 78760 Est Patient Comprehensive Exam Completed 10/22/2009 63827 Est Patient Intermediate Exam Completed 09/19/2009 40597 Scanning Laser W/Interp And Report Completed 09/19/2009 98849 Determination Of Refractive State Completed 09/12/2009 18118 Visual Field Exam Extended Completed 11/01/2008 44327 Scanning Laser W/Interp And Report Completed 11/01/2008 30865 Est Patient Comprehensive Exam Completed 10/06/2008 60469 Visual Field Exam Extended Completed 10/06/2008 96115 Est Patient Intermediate Exam Completed 10/06/2008 97029 Pachymetry Completed 02/25/2008 33094 Determination Of Refractive State Completed 11/26/2007 29239 Visual Field Exam Extended Completed 09/12/2006 49801 Visual Field Exam Extended Completed 08/28/2006 41353 Est Patient Comprehensive Exam Completed 2005 18468 Rescheduled Appointment Completed 09/27/2004 45588 Patient No Show For Appt Completed 09/08/2003 42045 Patient No Show For Appt Completed 08/16/2003 20277 Visual Field Exam Intermediate Completed 08/09/2003 96747 Patient No Show For Appt Completed Encounters Type Date Location Provider Dx Diagnosis Office Visit 05/14/2018 Antonia Lobato H10.89 Other conjunctivitis 11:20a , debbie Barcenas O.D. H40.1133 Primary open-angle glaucoma, bilateral, severe stage Office Visit 07/05/2017 10:10a Nemesio Wilburn H40.1133 Primary MD Thomas, debbie Barcenas O.D. open-angle glaucoma, bilateral, severe stage H25.813 Combined forms of age-related cataract, bilateral Office Visit 08/03/2013 8:30a Nemesio Wilburn 365.11 Primary Jamari Guzman MD, debbie Barcenas O.D. Angle Glaucoma 365.73 Severe / Advanced / End Stage Glaucoma Office Visit 08/11/2012 9:10a Nemesio Wilburn 365.11 Primary Jamari Guzman MD, debbie Barcenas O.D. Angle Glaucoma 365.73 Severe / Advanced / End Stage Glaucoma Office Visit 04/07/2012 9:10a Nemesio Wilburn 365.73 Severe / MD Thomas, debbie Barcenas O.D. Advanced / End Stage Glaucoma Office Visit 09/10/2011 10:30a Nemesio Wilburn 365.11 Emanuel Guzman MD, debbie Barcenas O.D. Angle Glaucoma 365.73 Severe / Advanced / End Stage Glaucoma Office Visit 06/06/2011 9:00a Nemesio Mccloud, 365.11 Primary Open MD Thomas, pc Angle Glaucoma 365.73 Severe / Advanced / End Stage Glaucoma Office Visit 04/23/2011 4:00p Nemesio Mccloud, 365.11 Primary Open MD Thomas, pc Angle Glaucoma 365.11 Primary Open Angle Glaucoma 365.73 Severe / Advanced / End Stage Glaucoma 365.73 Severe / Advanced / End Stage Glaucoma Office Visit 01/23/2010 8:40a Nemesio Wilburn 365.11 Primary Open MD Thomas, pc Stockwin, O.D. Angle Glaucoma Office Visit 09/19/2009 8:40a Nemesio Wilburn 365.11 Primary Open MD Thomas, pc Stockwin, O.D. Angle Glaucoma Office Visit 06/06/2009 8:40a Nemesio Wilburn 365.11 Primary Jamari Guzman MD, pc Stockjayden, O.D. Angle Glaucoma Office Visit 02/07/2009 11:00a Nemesio Wilburn 365.01 Low Risk Open MD Thomas, pc Stockjayden, O.D. Angle Glaucoma/ Suspect Office Visit 05/19/2008 8:15a Nemesio Sherman 365.11 Primary Jamari Guzman MD, pc M.D. Angle Glaucoma Office Visit 03/17/2008 9:15a Nemesio Sherman 365.11 Primary Jamari Guzman MD, pc M.D. Angle Glaucoma Office Visit 02/25/2008 3:45p Nemesio Sherman 365.11 Primary Jamari Guzman MD, pc M.D. Angle Glaucoma Office Visit 12/10/2007 3:00p Nemesio Sherman 365.11 Primary Jamari Guzman MD, pc M.D. Angle Glaucoma Office Visit 11/26/2007 9:45a Nemesio Sherman 365.11 Primary Jamari Guzman MD, pc M.D. Angle Glaucoma Office Visit 07/24/2007 9:00a Nemesio Sherman 365.11 Primary Jamari Guzman MD, pc M.D. Angle Glaucoma Office Visit 02/12/2007 3:15p Nemesio Sherman 365.11 Primary Jamari Guzman MD, debbie [place] Angle Glaucoma Office Visit 11/13/2006 3:15p Nemesio Sherman, 365.11 Primary Jamari Guzman MD, pc Alexis Angle Glaucoma Office Visit 09/12/2006 9:45a Nemesio Sherman, 365.11 Primary Jamari Guzman MD, pc [place] Angle Glaucoma Office Visit 04/12/2005 8:15a Nemesio Sherman 365.11 Primary Jamari Guzman MD, pc Alexis Angle Glaucoma Office Visit 12/20/2004 3:00p Nemesio Sherman, 365.11 Primary Jamari Guzman MD, pc MLaura Angle Glaucoma Office Visit 03/29/2004 9:45a Nemesio Sherman, 365.11 Primary Jamari Guzman MD, pc MLaura Angle Glaucoma 366.16 Senile Nuclear Sclerosis / Cataract Plan of Treatment 07/21/2018 - Antonia Barcenas O.D.H40.1133 Primary open-angle glaucoma, bilateral, severe stageNew Xrays:MRI Brain W/Wo Contrast, Ordered: Comments:continue current dropsstart rhopressa at bedtime right eyeFollow up: 1 mos recheck and second opinion with [facility]25.813 Combined forms of age-related cataract, bilateral
--- NOTE | 2018-08-11 19:36 | ED ---
Upper Extremity Pain - HPI Summary HPI Summary: Complains of left shoulder pain after rolling off the couch today. Denies head injury, LOC, vision change, BACH, altered mental status, neck pain, any other pain injury or symptoms. States he cannot lift his left upper extremity up to shoulder height. No pain when arm is hanging down. - History of Current Complaint Chief Complaint: EDExtremityUpper Stated Complaint: FALL, LEFT SHOULDER INJURY PER Time Seen by Provider: 08/11/18 18:13 Hx Obtained From: Patient Mechanism Of Injury: Fall From Height Of: Onset/Duration: Started Hours Ago Timing: Constant Severity Initially: Moderate Severity Currently: Moderate Pain Location: Shoulder Aggravating Factor(s): Abduction Alleviating Factor(s): Rest Associated Signs & Symptoms: Positive: Negative - Allergies/Home Medications Allergies/Adverse Reactions: Allergies Allergy/AdvReac Type Severity Reaction Status Date / Time diphenhydramine AdvReac See Comment Verified 08/11/18 18:12 [From Roycemarlee] Home Medications: Home Medications Brimonid/Timolol 0.2/0.5%(NF) [Combigan 0.2/0.5% (NF)] 1 drop BOTH EYES BID 09/24 [History Confirmed 08/11/18] PMH/Surg Hx/FS Hx/Imm Hx Endocrine/Hematology History: Reports: Other Endocrine/Hematological Disorders - Hx Lyme Disease Denies: Hx Diabetes Cardiovascular History: Reports: Hx Hypertension Denies: Hx Pacemaker/ICD GI History: Reports: Hx Gastrointestinal Bleed History: Denies: Hx Renal Disease Sensory History: Reports: Hx Contacts or Glasses, Hx Glaucoma, Hx Hearing Problem - hard of hearing, not deaf Denies: Hx Hearing Aid Opthamlomology History: Reports: Hx Contacts or Glasses, Hx Glaucoma Psychiatric History: Denies: Hx Panic Disorder - Surgical History Surgery Procedure, Year, and Place: TONSILS Infectious Disease History: No Infectious Disease History: Denies: Traveled Outside the [place] in Last 30 Days - Family History Known Family History: Positive: Diabetes - Social History Alcohol Use: None Substance Use Type: Reports: None Smoking Status (MU): Never Smoked Tobacco Review of Systems Constitutional: Negative Eyes: Negative ENT: Negative Cardiovascular: Negative Respiratory: Negative Gastrointestinal: Negative Genitourinary: Negative Musculoskeletal: Other Skin: Negative Neurological: Negative Psychological: Normal All Other Systems Reviewed And Are Negative: Yes Physical Exam - Summary Physical Exam Summary: No ecchymosis, erythema, swelling, extra warmth, deformity noted to left shoulder. No tenderness with palpation. Contracts Specialist strength normal and left upper extremity. PMS intact distally. Patient will not left arm. When left upper extremity is abducted passively patient has no pain until arm is return to resting position. Triage Information Reviewed: Yes Vital Signs On Initial Exam: Initial Vitals Temp Pulse Resp BP Pulse Ox 97.7 F 60 18 171/97 96 08/11/18 17:32 08/11/18 17:32 08/11/18 17:32 08/11/18 17:32 08/11/18 17:32 Vital Signs Reviewed: Yes Appearance: Positive: Well-Appearing Skin: Positive: Warm Head/Face: Positive: Normal Head/Face Inspection Eyes: Positive: Normal Respiratory/Lung Sounds: Positive: Clear to Auscultation Cardiovascular: Positive: Normal Abdomen Description: Positive: Nontender Musculoskeletal: Positive: Normal Neurological: Positive: Normal Psychiatric: Positive: Normal AVPU Assessment: Alert - Cristopher Coma Scale Best Eye Response: 4 - Spontaneous Best Motor Response: 6 - Obeys Commands Best Verbal Response: 5 - Oriented Coma Scale Total: 15 Diagnostics - Vital Signs Vital Signs Temp Pulse Resp BP Pulse Ox 08/11/18 17:32 97.7 F 60 18 171/97 96 - Laboratory Lab Statement: Any lab studies that have been ordered have been reviewed, and results considered in the medical decision making process. Course/Dx - Course Course Of Treatment: Complains of left shoulder pain after rolling off the couch today. Denies head injury, LOC, vision change, BACH, altered mental status , neck pain, any other pain injury or symptoms. States he cannot lift his left upper extremity up to shoulder height. No pain when arm is hanging down. Physical exam:No ecchymosis, erythema, swelling, extra warmth, deformity noted to left shoulder. No tenderness with palpation. Contracts Specialist strength normal and left upper extremity. PMS intact distally. Patient will not left arm. When left upper extremity is abducted passively patient has no pain until arm is returning to resting position. X-ray negative. Patient advised to follow-up with orthopedics if symptoms do not improve. Patient understands and approved plan. - Diagnoses Provider Diagnoses: Shoulder pain, acute Discharge - Sign-Out/Discharge Documenting (check all that apply): Patient Departure Patient Received Moderate/Deep Sedation with Procedure: No - Discharge Plan Condition: Stable Disposition: HOME Patient Education Materials: Shoulder Pain (ED) Referrals: Cassi Martinez MD [Primary Care Provider] - Marquis Mauro MD [Medical Doctor] - Additional Instructions: Follow-up tomorrow with orthopedics Dr. Costello for further evaluation of left shoulder pain. Use ice 15 minutes at a time on left shoulder. Return to the ED for any new or worsening symptoms. - Billing Disposition and Condition Condition: STABLE Disposition: Home
[2018-08-11 19:48] VITALS: BP 159/83
== END | disposition home or self-care (01) ==
LOC: ED 17:31
DX: M25.512 Pain in left shoulder (principal); I10 Essential (primary) hypertension
CPT/HCPCS: 99282

== ENCOUNTER 2018-09-10 07:57 | Day surgery (SDC) | payer MEDICARE ==
[~2018-09-10 07:57] MED LIST: Acetaminophen TAB* 325 MG PO PRN; Buffered Lidocaine 1% SYRIN* 1 ML/SYRINGE INTRADERM ONE; mitoMYcin 0.2 MG (0.02%) in Sterile Water for Inj* 1 ML OPHTHALMIC SCH
[2018-09-10] MEDS ORDERED: Propofol* 10 MG/ML 20 ML BTL ONE (10:00)
[2018-09-10] MEDS ORDERED: Lidocaine 2% PF * 5 ML VIAL ONE (10:00)
[2018-09-10] MEDS ORDERED: Carbachol 0.01% OPH.SOL* 1.5 ML OPHTH.SOLN ONE (10:09)
[2018-09-10 10:26] VITALS: BP 166/96
[2018-09-10] MEDS ORDERED: Neomycin/Polymy/Dex OPTH.SUSP* MAXITROL 0.1% 5 ML ONE (10:47)
[2018-09-10] MEDS ORDERED: Lidocaine 1%* 5 ML VIAL ONE (10:47)
[2018-09-10] MEDS ORDERED: Povidone Iodine 5% OPTH* 30 ML BTL ONE (10:47)
[2018-09-10] MEDS ORDERED: Lidocaine 2% EPI 1:200000 MPF*10-20 ML VIAL ONE (10:47)
[2018-09-10] MEDS ORDERED: Proparacaine 0.5% OPHTH.SOL* 15 ML BTL ONE (10:47)
--- NOTE | 2018-09-10 11:52 | OP ---
OPERATIVE REPORT: DATE OF OPERATION: 09/10/18 DATE OF : 30 SURGEON: Nemesio Guzman MD. ANESTHESIA: Local with MAC. PRE-OP DIAGNOSIS: Uncontrolled glaucoma, right. POST-OP DIAGNOSIS: Uncontrolled glaucoma, right. OPERATIVE PROCEDURE: Insertion of XEN stent, right. COMPLICATIONS: None. DESCRIPTION OF PROCEDURE: The patient was prepped and draped in the usual sterile fashion, topical 2 % lidocaine with epinephrine in the cornea. Paracentesis made at the 11 o'clock position. Anterior chamber irrigated with 1% nonpreserved intracameral lidocaine followed by ProVisc. Miostat was used to constrict the pupil. A 1.8 mm clear cornea incision was made at the 7 o'clock position. The XEN stent placed at the 1 o'clock position without difficulty using a shooter. Mitomycin-C 0.2 mg/mL, 0.1 mL injected near the opening of the XEN stent. Anterior chamber irrigated. [id number]/[facility] #: [id number]
== END 2018-09-10 10:36 | disposition home or self-care (01) ==
LOC: OREAST 07:57
PROVIDERS: ATTEND Specialist
DX: H40.1113 Primary open-angle glaucoma, right eye, severe stage (principal); I10 Essential (primary) hypertension; G62.9 Polyneuropathy, unspecified
CPT/HCPCS: A9270-GY; C1725; J2704; J9280

== ENCOUNTER 2018-09-24 06:16 | Day surgery (SDC) | payer MEDICARE ==
[2018-09-24] MEDS ORDERED: Carbachol 0.01% OPH.SOL* 1.5 ML OPHTH.SOLN ONE (07:13)
[2018-09-24] MEDS ORDERED: Midazolam* 1 MG/ML 2 ML VIAL (2 MG) ONE (07:14)
[2018-09-24] MEDS ORDERED: Lidocaine 2% EPI 1:200000 MPF*10-20 ML VIAL ONE (07:44)
[2018-09-24] MEDS ORDERED: Proparacaine 0.5% OPHTH.SOL* 15 ML BTL ONE (07:44)
[2018-09-24] MEDS ORDERED: Povidone Iodine 5% OPTH* 30 ML BTL ONE (07:44)
[2018-09-24] MEDS ORDERED: Neomycin/Polymy/Dex OPTH.SUSP* MAXITROL 0.1% 5 ML ONE (07:44)
[2018-09-24] MEDS ORDERED: Lidocaine 1%** 5 ML VIAL ONE (07:44)
[2018-09-24 08:13] VITALS: BP 167/82
--- NOTE | 2018-09-24 09:02 | OP ---
OPERATIVE REPORT: DATE OF OPERATION: 09/24/18 - [facility] DATE OF : 30 SURGEON: Nemesio Guzman MD. ANESTHESIA: Local MAC. PRE-OP DIAGNOSIS: Uncontrolled glaucoma, left eye. POST-OP DIAGNOSIS: Uncontrolled glaucoma, left eye. OPERATIVE PROCEDURE: Xen stent, left eye. COMPLICATIONS: None. DESCRIPTION OF PROCEDURE: The patient was given anesthetic drops 2% lidocaine with epinephrine and then prepped and draped in the usual sterile fashion. Lid speculum was placed in the left eye. Xen stent was prepared. Paracentesis at the 1 o'clock position with 75 blade. Anterior chamber irrigated with non- preservative intracameral 1% lidocaine followed by Miostat. Provisc was used to inflate the anterior chamber. A 1.8 mm clear corneal incision made at the 5 o'clock position. Xen stent placed at the 11 o'clock position with its shooter without difficulty. Mitomycin C 0.2 mg/mL 0.1 mL placed subconjunctivally at the tip of the Xen implant. Anterior chamber irrigated with balanced salt solution. All wounds checked and found to be watertight. Topical Maxitrol was given. [id number]/[facility] #: [id number] [facility]
== END 2018-09-24 08:05 | disposition home or self-care (01) ==
LOC: OREAST 06:16
PROVIDERS: ATTEND Specialist
DX: H40.1123 Primary open-angle glaucoma, left eye, severe stage (principal); I10 Essential (primary) hypertension; H25.813 Combined forms of age-related cataract, bilateral; G47.33 Obstructive sleep apnea (adult) (pediatric)
CPT/HCPCS: A9270-GY; C1725; J2250; J9280

== ENCOUNTER 2019-06-07 11:26 | Emergency (ER) | payer MEDICARE ==
--- OUTSIDE RECORDS SUMMARY | 2019-06-07 12:34 | XMS REPORT | Summary of Care ---
:1930 Author Organization [facility] Address [address] [address] Care Team Providers Name Role Phone Cassi Martinez Primary Care Provider Reason for Visit Reason Comments Follow Up Pt. in for a follow up on PVC's. Medication Management Pt. is off atenolol. Encounter Details Date Type Department Care Team Description 04/15/2019 Office Visit Alexander Ramachandran Wilfredo, PVC's (premature ventricular contractions) (Primary Dx); Cardiology MD Og Sinus node dysfunction (HCC); [address] Abnormal nuclear stress test; [place] [address] [place] [address] Hypertension, unspecified type [phone] Allergies Active Allergy Reactions Severity Noted Date Comments Nigel Inhibitors 01/16/2008 Cough Altaryl Rash 01/19/2008 documented as of this encounter (statuses as of 04/15/2019) Medications Medication Sig Dispensed Refills Start Date End Date Status XALATAN OP Place to the 0 Active external eye DAILY. Keymar-3 Fatty Acids Take by mouth 0 Active (FISH OIL) 500 MG Oral DAILY. Cap Tamsulosin HCl take 1 capsule by 180 Cap 1 07/21/2018 Active (FLOMAX) 0.4 MG Oral mouth once daily CapIndications: Enlarged prostate amLodipine (NORVASC) Take 1 Tab by 90 Tab 3 01/12/2019 Active 2.5 MG Oral mouth DAILY. TabIndications: Hypertension, unspecified type Aspirin 81 MG Oral Tab Take 1 Tab by 30 Tab 0 01/12/2019 Active mouth DAILY. documented as of this encounter (statuses as of 04/15/2019) Active Problems Problem Noted Date Ventricular ectopy 01/06/2019 Overview: Noted on holter- 11/24 - Also pauses - max 2.4 sec CRISTINO on CPAP 01/06/2019 Traumatic complete tear of left rotator cuff 11/11/2018 Echocardiogram abnormal 11/04/2018 Peripheral neuropathy 08/15/2018 Low HDL (under 40) 03/13/2016 Overview: 23 History of GI diverticular bleed 10/25/2014 Overview: October 2014 in [place]. Hypertension 01/16/2008 Chronic Anxiety 01/16/2008 Overview: Result of chemical exposure Obesity (BMI 30-39.9) 01/16/2008 Overview: 10/28/2006, BMI: 31.62 Replaced inactive diagnosis Glaucoma 01/16/2008 Overview: Follows regularly with Dr. Sherman. documented as of this encounter (statuses as of 04/15/2019) Immunizations Name Administration Dates Next Due dT Vaccine 05/13/1996 documented as of this encounter Social History Tobacco Use Types Packs/Day Years Used Date Never Smoker Smokeless Tobacco: Never Used Alcohol Use Drinks/Week oz/Week Comments No Sex Assigned at Date Recorded Not on file Job Start Date Occupation Industry Not on file Not on file Not on file Travel History Travel Start Travel End No recent travel history available. documented as of this encounter Last Filed Vital Signs Vital Sign Reading Time Taken Comments Blood Pressure 144/84 04/15/2019 1:17 PM EST Pulse 52 04/15/2019 12:59 PM EST Temperature - - Respiratory Rate - - Oxygen Saturation 98% 04/15/2019 12:59 PM EST Inhaled Oxygen Concentration - - Weight 95.3 kg (210 lb) 04/15/2019 12:59 PM EST Height 181.6 cm (5' 11.5") 04/15/2019 12:59 PM EST Body Mass Index 28.88 04/15/2019 12:59 PM EST documented in this encounter Patient Instructions Patient InstructionsOg Villalobos MD - 04/15/2019 1:00 PM EST INCREASE amlodipine to 5mg once every evening. Email me in a week to let me know how you're feeling on the higher dose and how your blood pressures are doing. If you're feeling fine, then I'll send a prescription for the 5mg dose. Continue to work on doing some regular exercise/walking. Follow up with me in about 4 months or sooner if needed. documented in this encounter Progress Notes Og Villalobos MD - 04/15/2019 1:00 PM EST [facility] Note Patient: Julio Erikcson Date of : 1930 Date of Service: 04/15/2019 REFERRING PRACTITIONER: Cassi Martinez PRIMARY CARE PROVIDER: Cassi Martinez Chief Complaint: Chief Complaint Patient presents with Follow Up Pt. in for a follow up on PVC's. Medication Management Pt. is off atenolol. History of Present Illness: [facility] He is a 89-y.o. male with HTN, obesity , CRISTINO, anxiety, frequent PVCs, and sinus node dysfunction. Nuclear stress testing in 12/2018 revealed possible inferior scar. Mr. Erickson returns to cardiology clinic today for close f/u. At his last visit I had stopped the atenolol completely given some bradycardia as well as concerns that it might be contributing to some of his fatigue. Since then, he and his and daugther report that he's feeling about the same as at his last visit. He does continue to have some dyspnea but was able to walk in from the parking lot today without too much of a problem. No chest pains/pressure. No lightheadedness or syncope. No LE edema. His fatigue improved when we switched his amlodipine from taking it in the AM to the PM. HomeBPs typically run in the 140s/80s. Patient Active Problem List Diagnosis Hypertension Chronic Anxiety Obesity (BMI 30-39.9) Glaucoma History of GI diverticular bleed Low HDL (under 40) Peripheral neuropathy Echocardiogram abnormal Traumatic complete tear of left rotator cuff Ventricular ectopy CRISTINO on CPAP Past Medical History: Diagnosis Date Chronic Anxiety 01/16/2008 Result of chemical exposure Glaucoma 01/16/[address] Sherman. History of Exposure to Insecticides 01/16/2008 Hypertension 01/16/2008 Obesity (BMI 30.0-39.9) 01/16/2008 10/28/2006, BMI: 31.62 Past Surgical History: Procedure Laterality Date CLOSED FRACTURE REDUCT 1977 Right leg no surg was reqd Allergies Allergen Reactions Nigel Inhibitors Cough Altaryl Rash Current Outpatient Medications Medication Sig amLodipine (NORVASC) 2.5 MG Oral Tab Take 1 Tab by mouth DAILY. Aspirin 81 MG Oral Tab Take 1 Tab by mouth DAILY. Keymar-3 Fatty Acids (FISH OIL) 500 MG Oral Cap Take by mouth DAILY. Tamsulosin HCl (FLOMAX) 0.4 MG Oral Cap take 1 capsule by mouth once daily XALATAN OP Place to the external eye DAILY. No current facility-administered medications for this visit. Family History Problem Relation Age of Onset Heart Mother Colon Cancer Father Kidney Father GI Son GERD GI Daughter GERD Heart Sister Heart Brother Social History Socioeconomic History Marital status: Spouse name: Not on file Number of children: Not on file Years of education: Not on file Highest education level: Not on file Occupational History Not on file Social Needs Financial resource strain: Not on file Food insecurity Worry: Not on file Inability: Not on file Transportation needs Medical: Not on file Non-medical: Not on file Tobacco Use Smoking status: Never Smoker Smokeless tobacco: Never Used Substance and Sexual Activity Alcohol use: No Drug use: No Sexual activity: Not Currently Partners: Female Lifestyle Physical activity Days per week: Not on file Minutes per session: Not on file Stress: Not on file Relationships Social connections Talks on phone: Not on file Gets together: Not on file Attends religion service: Not on file Active member of club or organization: Not on file Attends meetings of clubs or organizations: Not on file Relationship status: Not on file Intimate partner violence Fear of current or ex partner: Not on file Emotionally abused: Not on file Physically abused: Not on file Forced sexual activity: Not on file Other Topics Concern Back Care Not Asked Bike Helmet Not Asked Blood Transfusions No Caffeine Concern Not Asked Exercise Yes Comment: student affairs [employer]. Hobby Hazards Not Asked International Travel Not Asked Service Not Asked Occupational Exposure Not Asked Seat Belt Not Asked Self-Exams Not Asked Sleep Concern Not Asked Special Diet Not Asked Stress Concern Not Asked Weight Concern Not Asked Social History Narrative . 3 children 1 . 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 Review of Systems - Negative except for chronic OA pains and as noted in HPI. Physical Exam: Vitals: 04/15/19 1259 04/15/19 1317 BP: (!) 152/68 (!) 144/84 BP Location: Left arm Patient Position: Sitting Pulse: 52 SpO2: 98% Weight: 210 lb (95.3 kg) Height: 5' 11.5" (1.816 m) Body mass index is 28.88 kg/m. General: Well nourished, alert 89-y.o. male in NAD HEENT: anicteric, MMM, no E/E OP, conj pink Neck: JVP approx 7-8cm above RA; no carotid bruits or LAD CV: RR with frequent ectopy, normal s1/s2, no appreciable murmurs, rubs, or gallops Pulm: CTA bilaterally without wheezes, rhonchi, or rales. No increased work of breathing. Abd: soft, NT, ND, +BS. No appreciable pulsatile masses or bruits. Ext: no lower extremity edema, no cyanosis, no cords, redness, or warmth, 2+ distal pulses Neuro: no gross focal deficits other than being mildly hard of hearing. Skin: no visible lesions Labs: Lab Results Component Value Date NA 137 11/26/2018 K 4.4 11/26/2018 CL 101 11/26/2018 CO2 26 11/26/2018 GLUCOSE 99 11/26/2018 BUN 24 (H) 11/26/2018 CREATININE 1.1 11/26/2018 CALCIUM 9.2 11/26/2018 TP 7.2 04/07/2015 ALBUMIN 3.8 04/07/2015 AST 33 04/07/2015 ALT 36 04/07/2015 ALK 55 04/07/2015 TBILI 0.7 04/07/2015 EGFR >60 11/26/2018 No results found for: BNP Lab Results Component Value Date CHOL 137 04/07/2015 TRIG 147 04/07/2015 HDL 23 (L) 04/07/2015 LDL 85 04/07/2015 LDLHDLRATIO 3.7 04/07/2015 CHOLHDLRATIO 6.0 04/07/2015 Cardiac Studies: Regadenoson SPECT 12/10/2018: IMPRESSION 1. Scintigraphic findings suggesting an area of myocardial scar involving the inferior wall. Probable mild donald-infarct reversible ischemia. 3. Normal-sized left ventricle with preserved systolic function with ejection fraction of 61%. 4. No focal or regional wall motion abnormalities. 5. No evidence of transient ischemic dilation. TTE 12/10/2018: FINAL IMPRESSION: Mild concentric LVH with normal left atrial size and Grade I diastolic dysfunction. Normal LV systolic function with very mild and focal hypokinesis of the basal inferior and inferoseptal wall segments. Estimated LVEF 55-60%. Normal RA size. Mild RV enlargement with normal contractility. No structurally or hemodynamically significant valvular disease. No pericardial effusion. 24 Hr Holter 11/13/18: FINDINGS: 1. The rhythm throughout the 24-hour recording was normal sinus in origin, with a minimum heart rate of 33 beats per minute, average heart rate of 67 beats per minute, and maximum heart rate of 92 beats per minute. 0% of the recording was spent in tachycardia and 7% was spent in bradycardia. 2. A total of 135 asymptomatic pauses greater than 2 seconds were seen. The longest of these was 2.4 seconds and appeared to be a sinus pause at around 4:00 a.m. 3. Very frequent, mostly monomorphic ventricular ectopy was seen. Over 15,000 premature ventricular contractions were noted, which totaled 15% of the recording. One run of 3 beats of nonsustained ventricular tachycardia was noted, but no sustained ventricular tachycardia was seen. 4. Rare, isolated supraventricular ectopy was seen, totaling less than 1% of the recording. 5. No patient diary events were recorded. CONCLUSIONS: 1. 24-hour Holter monitor recording reveals frequent sinus tachycardia and brief, asymptomatic sinus pauses consistent with a degree of sinus node dysfunction. 2. Frequent, isolated, asymptomatic, and mostly monomorphic ventricular ectopy as described above. Assessment & Plan: Julio Erickson is a 89-y.o. male with HTN, obesity, CRISTINO, anxiety, frequent PVCs, and sinus node dysfunction. Nuclear stress testing in 12/2018 revealed possible inferior scar. ICD-9-CM ICD-10-CM 1. PVC's (premature ventricular contractions) 427.69 I49.3 2. Sinus node dysfunction (HCC) 427.81 I49.5 3. Abnormal nuclear stress test 794.39 R94.39 4. Hypertension, unspecified type 401.9 I10 1. Frequent PVCs/ALEJANDRO/Abnormal Nuclear Stress Test: I continue to believe that he likely he had an old inferior CA versus possibly a severe lesion in the RCA/ Cx territory based on his nuc and echo. We've discussed the risks/benefits of cath multiple times and he's decided to pursue a conservative, medical therapy approach, which I feel is very appropriate. Cont 81mg ASA daily. We were unable to keep him on atenolol d/t resting bradycardia and fatigue. I again strongly encouraged him to do more walking. Given his elevated BP, I'm increasing his amlodipine to 5mg once every evening. He'll email mein about a week to let me know if he's feeling more fatigued on the higher dose. If so, we can consider going back to the 2.5mg dose and adding a low dose of Aldactazide to his regimen for better BP control. 2. Sinus Node Dysfunction: Did have some brief sinus pauses during sleep hours on the Holter, but also has CRISTINO. Staying off BBs. Will likely repeat a Holter sometime after his next visit. Thank you for allowing me to participate in the care of Julio Erickson. We will plan on f/u in our office in 3-4 months or sooner prn. If you have any questions or concerns please feel free to call ouroffice at . Og Villalobos MD, 04/15/2019, 15:16 This note was created using my previous note as a template; changes were made where appropriate, andall information in the current note is up to date to the best of my knowledge.Electronically signed by Og Villalobos MD at 2019 3:17 PM ESTdocumented in this encounter Plan of Treatment Date Type Specialty Care Team Description 07/08/2019 Office Visit Internal Medicine Cassi Martinez MD [address] [place] [id number] 08/10/2019 Office Visit Cardiology Og Villalobos MD [facility] [place] [address] Health Maintenance Due Date Last Done Comments HIV SCREENING 1945 ZOSTER IMMUNIZATION SERIES (1 1980 of 2) PNEUMOCOCCAL 65+YRS (1 of 2 - 1995 PCV13) DTaP/Tdap/Td Vaccines (2 - 05/13/2006 05/13/1996 Tdap) MEDICARE ANNUAL WELLNESS VISIT 04/15/2014 04/15/2013 DEPRESSION SCREENING 08/30/2019 08/29/2018 FALL RISK ASSESSMENT 08/30/2019 08/29/2018, 08/29/2018 HEPATITIS A IMMUNIZATION Aged Out No longer eligible based SERIES on patient's age to complete this topic HPV IMMUNIZATION SERIES Aged Out No longer eligible based on patient's age to complete this topic MENINGOCOCCAL VACCINE IMM Aged Out No longer eligible based on patient's age to complete this topic documented as of this encounter Goals Goal Patient Goal Associated Recent Patient-Stated? Author Type Problems Progress Blood Pressure Blood Pressure 144/84 No Michelle, < 150/90 (04/15/2019 MD Cassi 1:17 PM EST) Note: This is an individualized treatment (blood pressure) goal for Julio Erickson: Displayed above (on the left) is your goal for blood pressure control. Your most recent blood pressure is also shown above, on the right. You should try to achieve blood pressures that are lower than your goal listed above (on the left). Weight loss vs. 18 mo max Lifestyle 5 (04/15/2019 12:59 PM EST) No Cassi Martinez MD (lbs) >= 10 Note: This is an individualized lifestyle goal for Julio Erickson: Your body mass index (BMI) is more than 30. You should lose weight. A reasonable starting goal is to lose 10 pounds. Displayed above is how many pounds you have lost thus far towards your 10 pound weight loss goal. Take all prescribed medications as directed Self-management Cassi Cain MD Note: This is an individualized self-management goal for Julio Erickson: Please take all prescribed medications as directed. 1. Do not skip doses. If you cannot afford your medications, talk with your doctor. 2. Use a pill reminder system such as a pill box if needed. Your pharmacist can help you with this. 3. Contact your Pharmacy 5 days before your medication runs out. If you cannot take your medications for any reasons, talk with your doctor. 4. Please bring all of your medication bottles and inhalers (or a list of all your medications/inhalers) with you to every visit. Potential barriers to meeting all of your care plan goals will continue to be addressed on an ongoing basis. documented as of this encounter Results Not on filedocumented in this encounter Visit Diagnoses Diagnosis PVC's (premature ventricular contractions) Other premature beats Sinus node dysfunction (HCC) Sinoatrial node dysfunction Abnormal nuclear stress test Other nonspecific abnormal cardiovascular system function study Hypertension, unspecified type documented in this encounter Insurance Payer Benefit Plan / Subscriber ID Effective Dates Phone Address Type Group MEDICARE MEDICARE PART A xxxxxxxxxxx 1995-Present Medicare & B [facility] [employer] [facility] xxxxxxxxxxx 2016-Present [facility] OPT[employer] Guarantor Name Account Type Relation to Date of Phone Billing Address Patient Julio Erickson Personal/Family [address] (Home) [place], [place] [phone] [id number] (Work) documented as of this encounter
--- OUTSIDE RECORDS SUMMARY | 2019-06-07 12:34 | XMS REPORT | Continuity of Care Document ---
:1930 External Reference #:[id number] Author Name Nemesio Guzman M.D. Address [address] [place] [address] Care Team Providers Name Role Phone Cassi Martinez M.D. 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 Onset: 12/31/2014 Severe / Advanced / End Stage Glaucoma Antonia Barcenas O.D. Onset: 2014 Nuclear senile cataract Antonia Barcenas O.D. Onset: 12/31/2014 Combined form of senile cataract Antonia Barcenas O.D. Onset: 05/30/2015 Bilateral primary open angle glaucoma Antonia Barcenas O.D. Onset: 2016 Conjunctivitis Antonia Barcenas O.D. Onset: 05/05/2018 Social History Type Date Description Comments Sex Unknown ETOH Use Denies alcohol use Tobacco Use Start: Unknown Patient has never smoked Recreational Drug Use Denies Drug Use Smoking Status Reviewed: 05/04/19 Patient has never smoked Allergies, Adverse Reactions, Alerts Active Allergies Reaction Severity Comments Date Benadryl 10/14/2014 Medications Active Medications SIG Qnty Indications Ordering Provider Date Combigan 1 drop both eyes 10ml H40.1133 Nemesio Guzman, 05/04/2019 0.2-0.5% twice a day [place] [facility] Atenolol take 1 tablet by Unknown 25mg Tablets mouth once daily Tamsulosin HCL take 1 capsule by Unknown 0.4mg mouth once daily Capsules Latanoprost 1 drop both eyes 7.5ml Nemesio Guzman, 0.005% every night M.D[place] Solution Amlodipine Besylate McClintic, Og Espinoza 2.5mg Tablets Immunizations Description No Information Available Vital Signs Description No Information Available Results Description No Information Available Procedures Description No Information Available Medical Devices Description No Information Available Encounters Description No Information Available Assessments Date Code Description Provider 05/04/2019 H40.1133 Primary open-angle glaucoma, bilateral, Nemesio Guzman M.D. severe stage 05/04/2019 H25.813 Combined forms of age-related cataract, Nmeesio Guzman M.D. bilateral 12/30/2018 H40.1133 Primary open-angle glaucoma, bilateral, Nemesio Guzman M.D. severe stage 12/30/2018 H25.813 Combined forms of age-related cataract, Nemesio Guzman M.D. bilateral 11/25/2018 H40.1133 Primary open-angle glaucoma, bilateral, Nemesio Guzman M.D. severe stage 11/04/2018 H40.1133 Primary open-angle glaucoma, bilateral, Nemesio Guzman M.D. severe stage 11/04/2018 H25.813 Combined forms of age-related cataract, Nemesio Guzman M.D. bilateral Plan of Treatment 05/04/2019 - Nemesio Guzman M.D.H40.1133 Primary open-angle glaucoma, bilateral, severe stageNew Medication:Combigan 0.2-0.5 % - 1 drop both eyes twice a dayComments:Smoking can increase the risk of developing or worsening any eye related disease, as well as affect your overall health. If you are a smoker, we strongly recommend that you quit.If you are not a smoker, we strongly recommend that you do not start. Your Glaucoma is not considered well controlled in both eyes at this time. This could mean that your eye pressure is not within your target range or your have consistent changes in your Glaucoma testing. Dr. Guzman will monitor you more closely until your Glaucoma is under control. BEGIN USING COMBIGAN TWICE A DAY IN BOTH EYES, YOU MAY HAVE SOME OF THIS LEFT AT HOME- IF NOT, PLEASE CALL OUR OFFICE.H21.911 Combined forms of age-related cataract, bilateralComments:You have been diagnosed with cataracts. They are limiting your vision, and I am unable to improve you with new glasses. Our next step is to schedule Cataract surgery and all necessary appointments, which Beulah will do for you. We recommend that you write down any questions you may have and bring them to your preoperative appointment so that Dr. Guzman can answer them for you. If you have any questions or concerns, you can reach Beulah or Linda at .Follow up:For preop exam before surgery. Functional Status Description No Information Available Mental Status Description No Information Available Referrals Description No Information Available
--- OUTSIDE RECORDS SUMMARY | 2019-06-07 12:34 | XMS REPORT | Continuity of Care Document ---
:1930 External Reference #:[id number] Author Name Nemesio Guzman M.D. Address [address] [place] [address] Care Team Providers Name Role Phone Cassi Martinez M.D. 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 [phone] Problems Active Problems Provider Date Bilateral hearing [...] Use Denies Drug Use Smoking Status Reviewed: 06/01/19 Patient has never smoked Allergies, Adverse Reactions, [...] 0.005% every night M.D[place] Solution Amlodipine Besylate Wilfredo, Og Espinoza 2.5mg Tablets Immunizations Description No Information Available Vital Signs Description No Information Available Results Description No Information Available Procedures Date Code Description Status 05/04/2019 16663 Visual Field Exam Extended Completed 05/04/2019 64362 Est Patient Intermediate Exam Completed Medical Devices Description No Information Available Encounters Description No Information Available Assessments Date Code Description Provider 06/01/2019 H40.1133 Primary open-angle glaucoma, bilateral, Nemesio Guzman M.D. severe stage 06/01/2019 H25.813 Combined forms of age-related cataract, Nemesio Guzman M.D. bilateral 05/04/2019 H40.1133 Primary open-angle glaucoma, bilateral, Nemesio Guzman M.D. severe stage 05/04/2019 H25.813 Combined forms of age-related margie, Nemesio Guzman M.D. bilateral 12/30/2018 H40.1133 Primary open-angle glaucoma, bilateral, Nemesio Guzman M.D. severe stage 12/30/2018 H25.813 Combined forms of age-related cataract, Nemesio Guzman M.D. bilateral Plan of Treatment 06/01/2019 - Nemesio Guzman M.D.H40.1133 Primary open-angle glaucoma, bilateral, severe stageComments:Smoking can increase the risk of developing or worsening any eye related disease, as well as affect your overall health. If you are a smoker, we strongly recommend that you quit.If you are not a smoker, we strongly recommend that you do not start. Your glaucoma is borderline at this time in both eyes. This could mean that your eye pressure is higher than your desired target, but not high enough tochange your treatment; or your eye pressure is in your target range, but there are questionable changes on your Glaucoma testing.H25.813 Combined forms of age-related cataract, bilateralComments:You have [...]
[2019-06-07 12:43] VITALS: BP 153/69
--- NOTE | 2019-06-07 13:09 | UC ---
Complaint Male HPI - HPI Summary HPI Summary: 89 yo with second episode of gross hematuria today with a similar episode of painless gross hematuria about a week ago. History of BPH and has been using flomax for relief of symptoms for some years. He does see a urologist regularly. Voids easily and does not report hx of bladder residual. In 2017 had 6 day admission for treatment of Proteus UTI, resolved with cefuroxime. He has no dysuria, back or abdominal pain, no fever and does not feel unwell. NO hx of renal stones. Non-smoker, retired [employer] with chemical exposures. 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 Onset/Duration: Sudden Onset, Lasting Hours Timing: Intermittent Severity Initially: Mild Severity Currently: Mild Pain Intensity: 0 Location: Other - pain in left inguinal area is brief and has recurred for years. Gets about 5 seconds of pain which resolves when he rubs it. Aggravating Factor(s): Voiding Alleviating Factor(s): Nothing Associated Signs And Symptoms: Positive: Negative - Risk Factors Testicular Torsion: Negative - Allergies/Home Medications Allergies/Adverse Reactions: Allergies Allergy/AdvReac Type Severity Reaction Status Date / Time diphenhydramine AdvReac See Comment Verified 09/24/18 06:39 [From Benadryl] Home Medications: Home Medications Latanoprost 0.005% OPTH (NF) [Xalatan 0.005% OPTH*] 1 drop BOTH EYES QPM [History Confirmed 09/10/18] Brimonid/Timolol 0.2/0.5%(NF) [Combigan 0.2/0.5% (NF)] 1 drop BOTH EYES BID 09/24 [History Confirmed 09/10/18] [place]-3 Fatty Acids (Nf) [Fish Oil (NF)] 1,000 mg PO QAM 09/08/18 [History Confirmed 09/10/18] Tamsulosin CAP* [Flomax CAP*] 0.4 mg PO QAM 09/08/18 [History Confirmed 09/10/18 ] Aspirin 81 mg CHEW TAB* 81 mg PO DAILY MDD 1 06/07/19 [History Confirmed ] amLODIPine TAB* [Norvasc 5 mg TAB*] 2.5 mg PO DAILY MDD 2.5mg 06/07/19 [History Confirmed 06/07/19] cephALEXin [Keflex] 500 mg PO BID #14 capsule 06/07/19 [Rx] PMH/Surg Hx/FS Hx/Imm Hx - Additional Past Medical History Additional PMH: glaucoma Lyme disease in 2013 left him with several years of joint pain and fatigue. Cardiovascular History: Hypertension, Other - CAD suspected byut has not had a cath--??possible LV dysfunction. 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 Respiratory History: Other - sleep apnea GI/ History: Other - benign prostatic hypertrophy - Surgical History Surgical History: Yes Surgery Procedure, Year, and Place: TONSILS madhavi gel implants eyes 2019 - Family History Known Family History: Positive: Cardiac Disease, Diabetes, Other - father had renal stones. - Social History Occupation: Retired Lives: With Family Alcohol Use: None Substance Use Type: None Smoking Status (MU): Never Smoked Tobacco Have You Smoked in the Last Year: No - Immunization History Most Recent Influenza Vaccination: unknown Most Recent Pneumonia Vaccination: unknown Review of Systems All Other Systems Reviewed And Are Negative: Yes Constitutional: Positive: Negative - Overall says that he has felt better in recent months. No weight loss. Skin: Positive: Negative Eyes: Positive: Negative, Diplopia Respiratory: Positive: Negative Cardiovascular: Negative: Palpitations, Chest Pain Gastrointestinal: Negative: Vomiting, Diarrhea, Nausea Genitourinary: Positive: Hematuria. Negative: Dysuria, Frequency, Urgency Motor: Positive: Negative Neurovascular: Positive: Negative Musculoskeletal: Positive: Myalgia Neurological/Mental Status: Positive: Negative Psychological: Positive: Negative Is Patient Immunocompromised?: No Physical Exam Triage Information Reviewed: Yes Appearance: Well-Appearing - elderly man., No Pain Distress Vital Signs: Initial Vital Signs Temp 97.9 F 06/07/19 12:33 Pulse 48 06/07/19 12:33 Resp 16 06/07/19 12:33 BP 153/69 06/07/19 12:33 Pulse Ox 97 06/07/19 12:33 Eyes: Positive: Conjunctiva Inflamed ENT: Positive: Pharynx normal Neck: Positive: Supple, No Lymphadenopathy Respiratory: Positive: Lungs clear, Normal breath sounds Cardiovascular: Positive: RRR, No Murmur Abdomen Description: Positive: Nontender, No Organomegaly, Soft, Other: - no bladder distention.. Negative: CVA Tenderness (R), CVA Tenderness (L) Musculoskeletal Exam: Other - antalgic gait, cane dependent. Neurological Exam: Normal Psychological Exam: Normal Skin Exam: Normal Diagnostics - Laboratory Lab Results: UA with 2+ esterace and rbc, grossly bloody sample. Complaint Male Course/Dx - Course Course Of Treatment: 2 episodes of bloody urine without associated pain or urinary symptoms is concerning. Esterace + and hemorrhagic cysitis possible although surprisingly few symptoms. Will begin use of cephalexin pending culture, and follow up with urology--sees Dr. Call at [place] and will call tomorrow. - Differential Dx/Diagnosis Differential Diagnosis/HQI/PQRI: Cancer, Prostatitis, Ureteral Calculi, Urinary Tract Infection Provider Diagnosis: UTI (urinary tract infection) Discharge ED - Sign-Out/Discharge Documenting (check all that apply): Patient Departure All imaging exams completed and their final reports reviewed: No Studies - Discharge Plan Condition: Stable Disposition: HOME Prescriptions: cephALEXin [Keflex] 500 mg PO BID #14 capsule Patient Education Materials: Urinary Tract Infection in Men (ED) Referrals: Cassi Martinez MD [Primary Care Provider] - Additional Instructions: HOLD aspirin until the results of the culture are available and you have been assessed by your urologist Begin cephalexin 500mg twice daily for suspected urine infection. Urine culture will take 2 to 3 days. If the culture is negative, you will receive a phone call. Please check in with your urologist tomorrow and schedule a follow up visit. If the culture does not grow bacteria, it will important to be seen this week. IF YOU DEVELOP FEVER OR ABDOMINAL PAIN OR VOMITING OR HAVE WORSENING SYMPTOMS, PLEASE GO DIRECTLY TO THE EMERGENCY ROOM. - Billing Disposition and Condition Condition: STABLE Disposition: Home
== END 2019-06-07 13:57 | disposition home or self-care (01) ==
LOC: UCEAST 11:26
DX: N39.0 Urinary tract infection, site not specified (principal); R31.9 Hematuria, unspecified; M79.10 Myalgia, unspecified site; I10 Essential (primary) hypertension; H40.9 Unspecified glaucoma; I25.10 Atherosclerotic heart disease of native coronary artery without angina pectoris; N40.0 Benign prostatic hyperplasia without lower urinary tract symptoms; Z79.82 Long term (current) use of aspirin; Z79.899 Other long term (current) drug therapy; Z88.8 Allergy status to other drugs, medicaments and biological substances
CPT/HCPCS: 81003; 87086; 99211; G0463

== ENCOUNTER 2019-08-04 15:40 | Emergency (ER) | payer MEDICARE ==
[2019-08-04 16:43] LABS: ABS Eosinophils 0.1 10^3/ul (0-0.6); ABS Lymphocytes 0.7 10^3/ul (1.0-4.8); ABS Monocytes 0.7 10^3/ul (0-0.8); Hematocrit 45 % (42-52); Hemoglobin 15.4 g/dL (14.0-18.0); Lymphocyte % 19.9 %; Mean Corpuscular HGB Conc 34 g/dL (31-36); Mean Corpuscular Hemoglobin 28 pg (27-31); Mean Corpuscular Volume 83 fL (80-94); Mean Platelet Volume 9.4 fL (7.4-10.4); Nucleated Red Blood Cells % 0.2; Platelet Count 167 10^3/uL (150-450); Red Blood Count 5.44 10^6 /uL (4.18-5.48); Red Cell Distribution Width 14 % (10-15); White Blood Count 3.4 10^3/uL (3.5-10.8)
[2019-08-04 16:51] LABS: Albumin 3.6 g/dL (3.2-5.2); Albumin/Globulin Ratio 1.2 (1-3); BUN/Creatinine Ratio 15.1 (8-20); Calcium 9.3 mg/dL (8.6-10.3); EGFR African American 79.6 (>60); EGFR Non-African American 65.8 (>60); Globulin 3.1 g/dL (2-4); Total Bilirubin 0.5 mg/dL (0.2-1.0); Total Protein 6.7 g/dL (6.4-8.9)
[2019-08-04] MEDS ORDERED: Iohexol 300 (CONTRAST) 10 ML SDV IV ONE (17:11)
[2019-08-04 18:52] LABS: Urine Appearance Cloudy; Urine Bilirubin Negative (Negative); Urine Blood 1+ (Negative); Urine Color Yellow; Urine Glucose Negative (Negative); Urine Ketones Negative (Negative); Urine Nitrite Negative (Negative); Urine Protein Negative (Negative); Urine Specific Gravity 1.017 (1.010-1.030); Urine Urobilinogen Negative (Negative)
[2019-08-04 19:05] LABS: Urine Bacteria 1+ (Absent); Urine Red Blood Cell Trace(0-2/hpf) (Absent); Urine Squamous Epithelial Cell Present (Absent); Urine White Blood Cell Trace(0-5/hpf) (Absent)
[2019-08-04 20:32] VITALS: BP 143/87
== END 2019-08-04 20:31 | disposition home or self-care (01) ==
LOC: ED 15:40